=== PATIENT | female | born 1960 | race Caucasian/White ===

== ENCOUNTER 2017-11-25 12:17 | Inpatient (IN) ==
--- NOTE | 2017-11-25 13:52 | ED ---
HPI General Chief complaint: Altered Mental Status Stated complaint: Vomiting Time Seen by Provider: 11/25/17 13:39 Source: patient Mode of arrival: wheelchair Limitations: altered mental status History of Present Illness HPI narrative: 57-year-old female who presents from triage with report that she had vomiting and diarrhea which she now denies to me. She is very confused and per staff she said her was with her and pointed out a trash can. She cannot tell me how many times she vomited and does not think that she ever did. She denies complaints but every time I ask her a question she just stares at me and does not respond. Related Data Home Medications Medication Instructions Recorded Confirmed acetaminophen [Tylenol Extra 1,000 mg PO Q6H PRN 11/25/17 11/25/17 Strength] [id number]-[id number] 1 tab PO Q4-6H PRN 11/25/17 11/25/17 [Headache Relief (JOT-[id number])] buspirone 15 mg PO TID 11/25/17 11/25/17 clonazepam [Klonopin] 0.5 mg PO BID PRN 11/25/17 11/25/17 clonidine HCl [Catapres] 0.2 mg PO BID 11/25/17 11/25/17 diphenhydramine HCl [Allergy 25 mg PO Q4-6H PRN 11/25/17 11/25/17 Relief(diphenhydramin)] guaifenesin [Mucus Relief] 200 mg PO Q4H PRN 11/25/17 11/25/17 hydrocodone-acetaminophen [[place]] 1 tab PO Q4-6H PRN 11/25/17 11/25/17 ibuprofen 200 mg PO Q4-6H PRN 11/25/17 11/25/17 ibuprofen 200 mg PO Q4-6H PRN 11/25/17 11/25/17 rizatriptan 10 mg PO Q2-4H PRN 11/25/17 11/25/17 sumatriptan succinate [Imitrex] 100 mg PO Q2-4H PRN 11/25/17 11/25/17 Allergies Allergy/AdvReac Type Severity Reaction Status Date / Time No Known Allergies Allergy Unverified 11/25/17 13:46 Review of Systems ROS Unobtainable unobtainable due to mental status [facility] Medical History Medical History Medical history unknown (Acute) Social History Social History Substance History: No History of Abuse Second Hand Smoke Exposure: Yes Smoking Status: Current every day smoker Tobacco Type: Cigarettes How Often Do You Have a Drink Containing Alcohol: 4 or more times a week Recent Travel in [facility] within the Last 8 Weeks: No Recent Out of Country Travel within the Last 8 Weeks: No Exam Narrative Exam Narrative: GENERAL: 57-year-old female in no apparent distress SKIN: Focused skin assessment warm/dry. HEAD: Atraumatic. Normocephalic. EYES: Pupils equal and round. No scleral icterus. No injection or drainage. ENT: No nasal bleeding or discharge. Mucous membranes pink and moist. NECK: Trachea midline. CARDIOVASCULAR: Regular rate and rhythm. RESPIRATORY: No accessory muscle use. Clear to auscultation. Breath sounds equal bilaterally. GASTROINTESTINAL: Abdomen soft, non-tender, nondistended. MUSCULOSKELETAL: No obvious deformities. No clubbing. No cyanosis NEUROLOGICAL: Eyes open, moves all extremities, slow clear speech Course Consultations Consultation #1: dr fuentes requests monitoring in icu given level of sodium Initial Documented Vital Signs Temperature 97.9 F 11/25/17 12:32 Pulse Rate 81 11/25/17 12:32 Respiratory Rate 16 11/25/17 12:32 Blood Pressure 206/110 H 11/25/17 12:32 Pulse Oximetry 100 11/25/17 12:32 Last Documented Vital Signs Temperature 98.2 F 11/25/17 13:43 Pulse Rate 89 11/25/17 17:00 Respiratory Rate 18 11/25/17 16:25 Blood Pressure 192/94 H 11/25/17 17:00 Pulse Oximetry 98 11/25/17 17:00 Medical Decision Making MDM Narrative Medical decision making narrative: Will check blood work, imaging, urinalysis and reevaluate Workup reveals critical hyponatremia with concurrent mild hypokalemia and UTI with leukocytosis. Given antibiotics and placed on normal saline fluids. On recheck patient is more responsive and agrees to admission to the hospital. Differential Diagnosis Differential Diagnosis: Intracranial injury, UTI, electrolyte abnormality Lab Data Lab results reviewed: Yes I reviewed the patient's lab results. Result diagrams: 11/25/17 13:50 11/25/17 13:50 Lab Results 11/25/17 11/25/17 11/25/17 Range/Units 13:50 13:50 13:50 WBC 20.0 H (4.0-11.0) th/mm3 RBC 4.36 (4.00-5.30) mil/mm3 Hgb 15.2 (11.6-15.3) gm/dL Hct 42.6 (35.0-46.0) % MCV 97.7 (80.0-100.0) fL MCH 34.8 H (27.0-34.0) pg MCHC 35.6 (32.0-36.0) % RDW 12.8 (11.6-17.2) % Plt Count 348 (150-450) th/mm3 MPV 6.9 L (7.0-11.0) fL Neut % (Auto) 82.2 H (16.0-70.0) % Lymph % (Auto) 9.9 (9.0-44.0) % [place] % (Auto) 7.8 (0.0-8.0) % Eos % (Auto) 0.0 (0.0-4.0) % Baso % (Auto) 0.1 (0.0-2.0) % Neut # (Auto) 16.4 H (1.8-7.7) th/mm3 Lymph # (Auto) 2.0 (1.0-4.8) th/mm3 [place] # (Auto) 1.6 H (0.0-0.9) th/mm3 Eos # (Auto) 0.0 (0.0-0.4) th/mm3 Baso # (Auto) 0.0 (0.0-0.2) th/mm3 WBC Differential . Differential Comment Auto diff final PT 11.2 (9.8-11.6) sec INR 1.1 Ratio APTT 28.3 (24.3-30.1) sec Sodium 116 L* (136-145) meq/L Potassium 3.0 L (3.5-5.1) meq/L Chloride 76 L (98-107) meq/L Carbon Dioxide 24.6 (21.0-32.0) meq/L Anion Gap 15 (5-15) meq/L BUN 7 (7-18) mg/dL Creatinine 0.57 (0.50-1.00) mg/dL Estimated GFR Greater than 89 (>89) mL/min POC Glucose (68-110) mg/dl Random Glucose 107 H (74-106) mg/dL Calcium 8.6 (8.5-10.1) mg/dL Total Bilirubin 0.9 (0.2-1.0) mg/dL AST 37 (15-37) U/L ALT 21 (10-53) U/L Alkaline Phosphatase 81 (45-117) U/L Ammonia (11-32) mcmol/L Total Creatine Kinase 276 H (26-192) U/L CK-MB (CK-2) 6.5 H (0.5-3.6) ng/mL CK-MB (CK-2) % 2.4 (0.0-4.0) % Troponin I Less than 0.02 L (0.02-0.05) ng/mL Total Protein 7.3 (6.4-8.2) g/dL Albumin 4.0 (3.4-5.0) g/dL Urine Color (Yellw/Straw) Urine Clarity (Clear) Urine pH (5.0-8.5) Ur Specific [place] (1.002-1.035) Urine Protein (Neg-Trace) mg/dL Urine Glucose (UA) (Negative) mg/dL Urine Ketones (Negative) mg/dL Urine Occult Blood (Negative) Urine Nitrate (Negative) Urine Bilirubin (Negative) Urine Urobilinogen (Less than 2) mg/dL Ur Leukocyte Esterase (Negative) Urine WBC (0-5) /hpf Urine Bacteria (None) /hpf Micro UA Comment Urine Culture Comments Serum Alcohol Less than 3 (0-5) mg/dL 11/25/17 11/25/17 11/25/17 Range/Units 13:50 13:51 14:45 WBC (4.0-11.0) th/mm3 RBC (4.00-5.30) mil/mm3 Hgb (11.6-15.3) gm/dL Hct (35.0-46.0) % MCV (80.0-100.0) fL MCH (27.0-34.0) pg MCHC (32.0-36.0) % RDW (11.6-17.2) % Plt Count (150-450) th/mm3 MPV (7.0-11.0) fL Neut % (Auto) (16.0-70.0) % Lymph % (Auto) (9.0-44.0) % [place] % (Auto) (0.0-8.0) % Eos % (Auto) (0.0-4.0) % Baso % (Auto) (0.0-2.0) % Neut # (Auto) (1.8-7.7) th/mm3 Lymph # (Auto) (1.0-4.8) th/mm3 [place] # (Auto) (0.0-0.9) th/mm3 Eos # (Auto) (0.0-0.4) th/mm3 Baso # (Auto) (0.0-0.2) th/mm3 WBC Differential Differential Comment PT (9.8-11.6) sec INR Ratio APTT (24.3-30.1) sec Sodium (136-145) meq/L Potassium (3.5-5.1) meq/L Chloride (98-107) meq/L Carbon Dioxide (21.0-32.0) meq/L Anion Gap (5-15) meq/L BUN (7-18) mg/dL Creatinine (0.50-1.00) mg/dL Estimated GFR (>89) mL/min POC Glucose 120 H (68-110) mg/dl Random Glucose (74-106) mg/dL Calcium (8.5-10.1) mg/dL Total Bilirubin (0.2-1.0) mg/dL AST (15-37) U/L ALT (10-53) U/L Alkaline Phosphatase (45-117) U/L Ammonia 24 (11-32) mcmol/L Total Creatine Kinase (26-192) U/L CK-MB (CK-2) (0.5-3.6) ng/mL CK-MB (CK-2) % (0.0-4.0) % Troponin I (0.02-0.05) ng/mL Total Protein (6.4-8.2) g/dL Albumin (3.4-5.0) g/dL Urine Color Yellow (Yellw/Straw) Urine Clarity Clear (Clear) Urine pH 7.0 (5.0-8.5) Ur Specific [place] 1.011 (1.002-1.035) Urine Protein 100 H (Neg-Trace) mg/dL Urine Glucose (UA) 50 (Negative) mg/dL Urine Ketones 20 (Negative) mg/dL Urine Occult Blood Moderate H (Negative) Urine Nitrate Negative (Negative) Urine Bilirubin Negative (Negative) Urine Urobilinogen 2.0 H (Less than 2) mg/dL Ur Leukocyte Esterase Negative (Negative) Urine WBC 12 H (0-5) /hpf Urine Bacteria Occasional H (None) /hpf Micro UA Comment Cath-culture ind Urine Culture Comments Cath-cult indicated Serum Alcohol (0-5) mg/dL Imaging Data Attestation: I personally reviewed and interpreted this imaging study as follows : Radiologist's impression: ITS Impressions Chest X-Ray 11/25/17 13:46 CONCLUSION: No acute cardiopulmonary disease. Head CT 11/25/17 13:46 CONCLUSION: 1. Scattered areas of low-attenuation white matter could be nonspecific white matter changes. 2. No hemorrhage or midline shift. Discharge Plan Discharge Disposition Patient Disposition: 30 Still Patient Discharge Details Discharge Problem: Acute hyponatremia, Acute alteration in mental status, Acute UTI Physicians Team ED Provider: Sujatha Fraire Primary Care Provider: Primary Care Eliza William Attending Provider: Joann Fuentes Discharge Interventions Interventions: ED Discharge Assessment Last Done: 11/25/17 17:11 Vital Signs Last Done: 11/25/17 15:15 Status ED Status: Left Department Discharge Information Discharge Date/Time: 11/25/17 17:12
[2017-11-25 14:17] LABS: Baso % (Auto) 0.1 % (0.0-2.0); Hematocrit 42.6 % (35.0-46.0); Hemoglobin 15.2 gm/dL (11.6-15.3); Lymph % (Auto) 9.9 % (9.0-44.0); Mean Corpuscular HGB Conc 35.6 % (32.0-36.0); Mean Corpuscular Hemoglobin 34.8 pg (27.0-34.0); Mean Corpuscular Volume 97.7 fL (80.0-100.0); Mean Platelet Volume 6.9 fL (7.0-11.0); Mono # (Auto) 1.6 th/mm3 (0.0-0.9); Mono % (Auto) 7.8 % (0.0-8.0); Neut # (Auto) 16.4 th/mm3 (1.8-7.7); Neut % (Auto) 82.2 % (16.0-70.0); Platelet Count 348 th/mm3 (150-450); Red Blood Count 4.36 mil/mm3 (4.00-5.30); Red Cell Distribution Width 12.8 % (11.6-17.2)
--- NOTE | 2017-11-25 14:19 | XR ---
EXAM DATE: 11/25/2017 2:10 PM EDT AGE/SEX: 57 years / Female INDICATIONS: Nausea, vomiting, AMS. CLINICAL DATA: This is the patient's initial encounter. Patient reports that signs and symptoms have been present for 1 day and indicates a pain score of Nonresponsive. MEDICAL/SURGICAL HISTORY: Non-responsive. Non-responsive. COMPARISON: No prior exams available for comparison. FINDINGS: The cardiac silhouette is normal in transverse diameter. The lungs are free of acute parenchymal opac ity. No effusions are identified. There is prominence of the aortic knob is with calcification charac teristic of atherosclerotic vascular disease. CONCLUSION: No acute cardiopulmonary disease. Electronically signed by: Demetris Juan MD 11/25/2017 2:18 PM EDT
[2017-11-25 14:27] LABS: Activated Partial Thrombo Time 28.3 sec (24.3-30.1); INR 1.1 Ratio; Prothrombin Time 11.2 sec (9.8-11.6)
[2017-11-25 14:49] LABS: Alanine Aminotransferase 21 U/L (10-53); Alkaline Phosphatase 81 U/L (45-117); Anion Gap 15 meq/L (5-15); Aspartate Aminotransferase 37 U/L (15-37); Blood Urea Nitrogen 7 mg/dL (7-18); Calcium 8.6 mg/dL (8.5-10.1); Carbon Dioxide 24.6 meq/L (21.0-32.0); Chloride 76 meq/L (98-107); Creatine Kinase 276 U/L (26-192); Glomerular Filtration Rate Greater Than 89 mL/min (>89); Glucose,Random 107 mg/dL (74-106); Total Protein 7.3 g/dL (6.4-8.2)
[2017-11-25 14:51] LABS: Sodium 116 meq/L (136-145)
[2017-11-25] MEDS ORDERED: Sodium Chlor 0.9% Inj 500 ML IV.SIG ONE (14:54)
[2017-11-25 15:12] LABS: CKMB Percent 2.4 % (0.0-4.0); Creatine Kinase MB 6.5 ng/mL (0.5-3.6)
[2017-11-25 15:24] LABS: Bacteria,Urine Occasional /hpf; Bilirubin,Urine Negative (Negative); Clarity,Urine Clear (Clear); Color,Urine Yellow (Yellw/Straw); Glucose,Urine (UA) 50 mg/dL (Negative); Leukocyte Esterase,Urine Negative (Negative); Nitrite,Urine Negative (Negative); Specific Gravity,Urine 1.011 (1.002-1.035)
[2017-11-25] MEDS ORDERED: Bisacodyl 10 MG Supp RECTAL PRN (16:11)
[2017-11-25] MEDS ORDERED: Sod Chloride 0.9% Inj 1,000 ML IV.CONT SCH (16:15)
[2017-11-25 17:43] LABS: Anion Gap 16 meq/L (5-15); Blood Urea Nitrogen 6 mg/dL (7-18); Calcium 8.1 mg/dL (8.5-10.1); Carbon Dioxide 24.4 meq/L (21.0-32.0); Chloride 79 meq/L (98-107); Glomerular Filtration Rate Greater Than 89 mL/min (>89); Glucose,Random 101 mg/dL (74-106)
[2017-11-25 17:46] LABS: Amphetamine Screen,Urine Neg (Neg); Barbiturate Screen,Urine Neg (Neg); Cannabinoid Screen,Urine Neg (Neg); Cocaine Screen,Urine Neg (Neg); Opiate Screen,Urine Neg (Neg)
[2017-11-25 17:59] LABS: Potassium 2.4 meq/L (3.5-5.1); Sodium 119 meq/L (136-145)
[2017-11-25] MEDS ORDERED: Potassium Chlor 20 mEq Premix 20 MEQ/100 ML PIGGYBACK IV.SIG ONE (18:00)
[2017-11-25] MEDS ORDERED: Potassium Chloride Inj 20 MEQ in Sod Chloride 0.9% Inj 1,000 ML IV.CONT SCH (18:15)
--- NOTE | 2017-11-25 18:27 | P.HP ---
History of Present Illness Primary Care Physician: No Primary Care Physician History of Present Illness: Patient is a 57-year-old female with past medical history of hyponatremia on sodium tablets presented to the emergency room with encephalopathy. She is a poor historian she thinks it is 1985, she knows who the president is but she thinks she is in [place]. She admits to nausea and vomiting for the past 2 days. She denies any diarrhea. She denies eating anything new at home. She denies any sick contacts. She denies any burning in urination or increased urinary frequency. She states that her called EMS for her. She admits to fevers and chills however she never took an official temperature at home. Per nurse, patient is here on a road trip. To me patient denied any diarrhea. Initially she said yes when asked if she had any chest pain or shortness of breath but then she says no when I asked her again. She seemed annoyed with my question. She denied again any chest pain shortness of breath however after I asked her a third time. Per EMR documentation: "Pt reported that she had been vomiting and having diarrhea to triage but denied this to ED physician. She was very confused and per staff she said her was with her and pointed out a trash can. She cannot tell ED physician how many times she vomited and does not think that she ever did. She denied complaints but every time ED physician asked her a question she just stared at her and did not respond." Past medical history: Questionable history of hypothyroidism, anxiety, alcohol use daily states it is only 2 beers however patient is a poor historian therefore unable to assess. History of headaches. She is a smoker. Apparently she has chronic hyponatremia Past surgical history: None per patient Family history: She complains that her parents are healthy. When I asked if they are living she says I think so. Social history: Smokes a pack a day for many years. Admits to drinking daily to beers but does not elaborate much. Denies any prior history of seizures. Denies any illegal drug use. CODE STATUS: Patient states she does not want to be resuscitated however patient is confused therefore will make her full code for now. - Inpatient Certification If this patient has been admitted as an Inpatient: I certify that the inpatient services were ordered in accordance with Medicare regulations governing the order. This includes certification that hospital inpatient services are reasonable and necessary and in the case of services not specified as inpatient-only under 42 CFR 419.22(n), that they are appropriately provided as inpatient services in accordance to with the 2-midnight benchmark under 43 CFR 412.3(e) Estimated Total Length of Stay (Days): 3 Plans for Post Hospital Care: Not yet determined Review of Systems other (Patient is confused. Part of the history is obtained by patient and EMR) PMFSH - History History Provided By: Patient - Medical History Medical History: Medical History (Last Reviewed 11/25/17 @ 17:23 by Sujatha Fraire MD) Medical history unknown - Tobacco History Second Hand Smoke Exposure: Yes Tobacco Use In Past 30 Days: Yes Smoking Status: Current every day smoker Tobacco Type: Cigarettes - Alcohol History How Often Do You Have a Drink Containing Alcohol: 4 or more times a week - Substance Use History Substance History: No History of Abuse - Travel History Recent Travel in the [place] Within the Last 8 Weeks: No Recent Travel Out of the Country Within the Last 8 Weeks: No - Immunization History Tetanus Immunization: Unsure Hx Influenza Vaccine This Season: Yes Medications and Allergies Active Medications: Active Medications Al Hydroxide/Mg Hydroxide (Milk Of Magnesia Liq) 30 ml PO Q12H PRN PRN Reason: Mild Constipation Amlodipine Besylate (Norvasc) 10 mg PO DAILY ALEX Bisacodyl (Dulcolax Supp) 10 mg RECTAL DAILY PRN PRN Reason: SEVERE CONSITIPATION Potassium Chloride (Kcl 20 Meq Premix Inj) 20 meq in 100 mls @ 50 mls/hr IV.SIG ONCE ONE Stop: 11/25/17 19:59 Potassium Chloride 20 meq/ (Sodium Chloride) 1,010 mls @ 45 mls/hr IV.CONT .[id number] ALEX Lactulose (Lactulose Liq) 30 ml PO DAILY PRN PRN Reason: SEVERE CONSITIPATION Ondansetron HCl (Zofran Inj) 4 mg IV.PUSH Q6H PRN PRN Reason: NAUSEA OR VOMITING Last Admin: 11/25/17 17:33 Dose: 4 mg Senna/Docusate Sodium (Aye-Colace) 1 tab PO BID ALEX Sennosides (Senokot) 17.2 mg PO Q12H PRN PRN Reason: Moderate Constipation Sodium Chloride (Ns Flush) 2 ml IV.FLUSH PRN PRN PRN Reason: FLUSH AFTER USING IV ACCESS Sodium Chloride (Ns Flush) 2 ml IV.FLUSH PRN PRN PRN Reason: FLUSH AFTER USING IV ACCESS Temazepam (Restoril) 15 mg PO HS PRN PRN Reason: INSOMNIA Allergies Allergy/AdvReac Type Severity Reaction Status Date / Time No Known Allergies Allergy Unverified 11/25/17 13:46 Home Medications Medication Instructions Recorded Confirmed Type acetaminophen [Tylenol Extra 1,000 mg PO Q6H PRN 11/25/17 11/25/17 History Strength] zmqwbxg-nsbplrgvygupp-ekkdkzbf 1 tab PO Q4-6H PRN 11/25/17 11/25/17 History [Headache Relief (QBU-rqij-yqk)] buspirone 15 mg PO TID 11/25/17 11/25/17 History clonazepam [Klonopin] 0.5 mg PO BID PRN 11/25/17 11/25/17 History clonidine HCl [Catapres] 0.2 mg PO BID 11/25/17 11/25/17 History diphenhydramine HCl [Allergy 25 mg PO Q4-6H PRN 11/25/17 11/25/17 History Relief(diphenhydramin)] guaifenesin [Mucus Relief] 200 mg PO Q4H PRN 11/25/17 11/25/17 History hydrocodone-acetaminophen [[place]] 1 tab PO Q4-6H PRN 11/25/17 11/25/17 History ibuprofen 200 mg PO Q4-6H PRN 11/25/17 11/25/17 History ibuprofen 200 mg PO Q4-6H PRN 11/25/17 11/25/17 History rizatriptan 10 mg PO Q2-4H PRN 11/25/17 11/25/17 History sumatriptan succinate [Imitrex] 100 mg PO Q2-4H PRN 11/25/17 11/25/17 History Exam Vital signs: Vital Signs 11/25/17 12:32 11/25/17 13:43 11/25/17 14:17 Temperature 97.9 F 98.2 F Pulse Rate 81 80 Respiratory Rate 16 18 Blood Pressure 206/110 H 200/107 H Pulse Oximetry 100 98 98 11/25/17 15:15 11/25/17 16:25 11/25/17 17:00 Temperature Pulse Rate 90 79 89 Respiratory Rate 14 18 Blood Pressure 201/107 H 184/95 H 192/94 H Pulse Oximetry 99 99 98 Intake & Output 11/24/17 11/25/17 11/25/17 18:59 06:59 18:59 Weight 53.8 kg Other: Post Void Residual 200 Weight On Admission 53.8 kg Narrative: GENERAL: Thin female, trying to get out of [facility] bed and urinated on the floor. calm SKIN: Warm and dry. HEAD: Atraumatic. Normocephalic. EYES: EOMI ENT: No nasal discharge. Mucous membranes pink and moist. NECK: Trachea midline. No JVD. CARDIOVASCULAR: Regular rate and rhythm. RESPIRATORY: No accessory muscle use. Clear to auscultation. Breath sounds equal bilaterally. GASTROINTESTINAL: Abdomen soft, non-tender, nondistended. MUSCULOSKELETAL: Extremities without edema. No obvious deformities. NEUROLOGICAL: Awake and alert. No obvious cranial nerve deficits. Motor grossly within normal limits. Five out of 5 muscle strength in the arms and legs. Normal speech. PSYCHIATRIC: flat affect, calm, follows commands but getting out of bed even when nursing staff tells her to remain in bed. Results - Labs CBC & Chem 7: 11/25/17 13:50 11/25/17 16:45 Labs: Laboratory Results - last 24 hr 11/25/17 11/25/17 11/25/17 13:50 13:50 13:50 WBC 20.0 H RBC 4.36 Hgb 15.2 Hct 42.6 MCV 97.7 MCH 34.8 H MCHC 35.6 RDW 12.8 Plt Count 348 MPV 6.9 L Neut % (Auto) 82.2 H Lymph % (Auto) 9.9 [place] % (Auto) 7.8 Eos % (Auto) 0.0 Baso % (Auto) 0.1 Neut # (Auto) 16.4 H Lymph # (Auto) 2.0 [place] # (Auto) 1.6 H Eos # (Auto) 0.0 Baso # (Auto) 0.0 WBC Differential . Differential Comment Auto diff final PT 11.2 INR 1.1 APTT 28.3 Sodium 116 L* Potassium 3.0 L Chloride 76 L Carbon Dioxide 24.6 Anion Gap 15 BUN 7 Creatinine 0.57 Estimated GFR Greater than 89 POC Glucose Random Glucose 107 H Calcium 8.6 Total Bilirubin 0.9 AST 37 ALT 21 Alkaline Phosphatase 81 Ammonia Total Creatine Kinase 276 H CK-MB (CK-2) 6.5 H CK-MB (CK-2) % 2.4 Troponin I Less than 0.02 L Total Protein 7.3 Albumin 4.0 Urine Color Urine Clarity Urine pH Ur Specific [place] Urine Protein Urine Glucose (UA) Urine Ketones Urine Occult Blood Urine Nitrate Urine Bilirubin Urine Urobilinogen Ur Leukocyte Esterase Urine WBC Urine Bacteria Micro UA Comment Urine Culture Comments Urine Opiates Screen Ur Barbiturates Screen Ur Amphetamines Screen U Benzodiazepines Scrn Urine Cocaine Screen U Cannabinoids Screen Serum Alcohol Less than 3 11/25/17 11/25/17 11/25/17 13:50 13:51 14:45 WBC RBC Hgb Hct MCV MCH MCHC RDW Plt Count MPV Neut % (Auto) Lymph % (Auto) [place] % (Auto) Eos % (Auto) Baso % (Auto) Neut # (Auto) Lymph # (Auto) [place] # (Auto) Eos # (Auto) Baso # (Auto) WBC Differential Differential Comment PT INR APTT Sodium Potassium Chloride Carbon Dioxide Anion Gap BUN Creatinine Estimated GFR POC Glucose 120 H Random Glucose Calcium Total Bilirubin AST ALT Alkaline Phosphatase Ammonia 24 Total Creatine Kinase CK-MB (CK-2) CK-MB (CK-2) % Troponin I Total Protein Albumin Urine Color Urine Clarity Urine pH Ur Specific [place] Urine Protein Urine Glucose (UA) Urine Ketones Urine Occult Blood Urine Nitrate Urine Bilirubin Urine Urobilinogen Ur Leukocyte Esterase Urine WBC Urine Bacteria Micro UA Comment Urine Culture Comments Urine Opiates Screen Neg Ur Barbiturates Screen Neg Ur Amphetamines Screen Neg U Benzodiazepines Scrn Neg Urine Cocaine Screen Neg U Cannabinoids Screen Neg Serum Alcohol 11/25/17 11/25/17 14:45 16:45 WBC RBC Hgb Hct MCV MCH MCHC RDW Plt Count MPV Neut % (Auto) Lymph % (Auto) [place] % (Auto) Eos % (Auto) Baso % (Auto) Neut # (Auto) Lymph # (Auto) [place] # (Auto) Eos # (Auto) Baso # (Auto) WBC Differential Differential Comment PT INR APTT Sodium 119 L* Potassium 2.4 L* Chloride 79 L Carbon Dioxide 24.4 Anion Gap 16 H BUN 6 L Creatinine 0.48 L Estimated GFR Greater than 89 POC Glucose Random Glucose 101 Calcium 8.1 L Total Bilirubin AST ALT Alkaline Phosphatase Ammonia Total Creatine Kinase CK-MB (CK-2) CK-MB (CK-2) % Troponin I Total Protein Albumin Urine Color Yellow Urine Clarity Clear Urine pH 7.0 Ur Specific [place] 1.011 Urine Protein 100 H Urine Glucose (UA) 50 Urine Ketones 20 Urine Occult Blood Moderate H Urine Nitrate Negative Urine Bilirubin Negative Urine Urobilinogen 2.0 H Ur Leukocyte Esterase Negative Urine WBC 12 H Urine Bacteria Occasional H Micro UA Comment Cath-culture ind Urine Culture Comments Cath-cult indicated Urine Opiates Screen Ur Barbiturates Screen Ur Amphetamines Screen U Benzodiazepines Scrn Urine Cocaine Screen U Cannabinoids Screen Serum Alcohol - Imaging Impressions Chest X-Ray 11/25/17 13:46 CONCLUSION: No acute cardiopulmonary disease. Head CT 11/25/17 13:46 CONCLUSION: 1. Scattered areas of low-attenuation white matter could be nonspecific white matter changes. 2. No hemorrhage or midline shift. Caprini VTE Risk Assessment Caprini VTE Risk Assessment: No/Low Risk (score <= 1) Caprini Risk Assessment Model: Point Value = 1 Point Value = 2 Point Value = 3 Point Value = 5 Age 41-60 Minor surgery BMI > 25 kg/m2 Swollen legs Varicose veins or History of unexplained or recurrent spontaneous Oral contraceptives or hormone replacement Sepsis (< 1 month) Serious lung disease, including pneumonia (< 1 month) Abnormal pulmonary function Acute myocardial infarction Congestive heart failure (< 1 month) History of inflammatory bowel disease Medical patient at bed rest Age 61-74 Arthroscopic surgery Major open surgery (> 45 min) Laparoscopic surgery (> 45 min) Malignancy Confined to bed (> 72 hours) Immobilizing plaster cast Central venous access Age >= 75 History of VTE Family history of VTE Factor V Leiden Prothrombin 50045L Lupus anticoagulant Anticardiolipin antibodies Elevated serum homocysteine Heparin-induced thrombocytopenia Other congenital or acquired thrombophilia Stroke (< 1 month) Elective arthroplasty Hip, pelvis, or leg fracture Acute spinal cord injury (< 1 month) Prophylaxis Regimen: Total Risk Factor Score Risk Level Prophylaxis Regimen 0-1 Low Early ambulation 2 Moderate Order ONE of the following: *Sequential Compression Device (SCD) *Heparin 5000 units SQ BID 3-4 Higher Order ONE of the following medications: *Heparin 5000 units SQ TID *Enoxaparin/Lovenox 40 mg SQ daily (WT < 150 kg, CrCl > 30 mL/min) *Enoxaparin/Lovenox 30 mg SQ daily (WT < 150 kg, CrCl > 10-29 mL/min) *Enoxaparin/Lovenox 30 mg SQ BID (WT < 150 kg, CrCl > 30 mL/min) AND/OR *Sequential Compression Device (SCD) 5 or more Highest Order ONE of the following medications: *Heparin 5000 units SQ TID (Preferred with Epidurals) *Enoxaparin/Lovenox 40 mg SQ daily (WT < 150 kg, CrCl > 30 mL/min) *Enoxaparin/Lovenox 30 mg SQ daily (WT < 150 kg, CrCl > 10-29 mL/min) *Enoxaparin/Lovenox 30 mg SQ BID (WT < 150 kg, CrCl > 30 mL/min) AND *Sequential Compression Device (SCD) Assessment and Plan - Plan Patient presented with Severe hyponatremia with a sodium level 116. Apparently patient states that she has a history of chronic hyponatremia and take to sodium tablets daily. She was admitted to the ICU for close monitoring, She tells me she has a doll wigs hackler but does not give me the name. She does give me the name of her primary care doctor but thinks this PCP is here. Nursing staff tells me that they are here on a road trip. Will fluid restrict patient. Put her on seizure precautions. Patient admits to drinking 2 beers a day however patient is a poor historian therefore might be drinking more than this. CIWA protocol was started. Fall precautions in place. Monitor BMP every 4 hours. Slowly replace with normal saline at 45 mL's per hour with 20 mEq KCl. I have started pt on sodium tabs. check serum/urine osm Severe hypokalemia. Potassium down to 2.4. We will give 40 mEq p.o. 1 and 40 mg IV as well. Added potassium to her IV fluids. Monitor very closely. History of anxiety. Resume home medication. History of alcohol use: Unsure if she has a history of alcohol abuse. [place] protocol in place. Fall and seizure precautions in place. Monitor closely. Patient is getting out of bed even after we redirect her and asked her to stay in bed. Will place her on soft restraints for now hopefully DC in the morning. ?hypothyroidism: reviewed bag of meds but there was no thyroid meds. will check TSH/T4
[2017-11-25] MEDS: Potassium Chlor 20 mEq Premix 20 MEQ/100 ML PIGGYBACK IV.SIG SCH ×2 (18:37→20:38)
[2017-11-25] MEDS: amLODIPine 10 MG Tablet PO SCH (18:40)
[2017-11-25] MEDS ORDERED: LORazepam 1 MG Tablet PO PRN (18:50)
[2017-11-25] MEDS ORDERED: Haloperidol Inj 5 MG/ML Ampul IV.PUSH PRN (18:50)
[2017-11-25 21:30] LABS: Anion Gap 13 meq/L (5-15); Blood Urea Nitrogen 5 mg/dL (7-18); Calcium 8.8 mg/dL (8.5-10.1); Carbon Dioxide 24.3 meq/L (21.0-32.0); Chloride 83 meq/L (98-107); Free T4 (Free Thyroxine) 0.95 ng/dL (0.76-1.46); Glomerular Filtration Rate Greater Than 89 mL/min (>89); Glucose,Random 137 mg/dL (74-106)
[2017-11-25 21:44] LABS: Potassium 2.4 meq/L (3.5-5.1); Sodium 120 meq/L (136-145)
[2017-11-25] MEDS: Senna/Docusate Sodium 8.6/50 MG Tablet PO SCH (22:32)
[2017-11-25] MEDS: Sodium Chloride 1 GM Tablet PO SCH (22:33)
[2017-11-26 01:09] LABS: Anion Gap 14 meq/L (5-15); Blood Urea Nitrogen 5 mg/dL (7-18); Calcium 9.4 mg/dL (8.5-10.1); Carbon Dioxide 23.7 meq/L (21.0-32.0); Chloride 90 meq/L (98-107); Glomerular Filtration Rate Greater Than 89 mL/min (>89); Glucose,Random 92 mg/dL (74-106); Sodium 128 meq/L (136-145)
[2017-11-26 05:41] LABS: Anion Gap 14 meq/L (5-15); Blood Urea Nitrogen 5 mg/dL (7-18); Calcium 8.9 mg/dL (8.5-10.1); Carbon Dioxide 22.5 meq/L (21.0-32.0); Chloride 93 meq/L (98-107); Glomerular Filtration Rate Greater Than 89 mL/min (>89); Glucose,Random 94 mg/dL (74-106); Sodium 129 meq/L (136-145)
[2017-11-26 05:52] LABS: Potassium 2.8 meq/L (3.5-5.1)
[2017-11-26] MEDS ORDERED: Potassium Chlor 20 mEq Premix 20 MEQ/100 ML PIGGYBACK IV.SIG ONE (06:30)
[2017-11-26] MEDS ORDERED: cefTRIAXone Inj 1,000 MG Vial IM SCH (09:00)
[2017-11-26 09:46] LABS: Anion Gap 12 meq/L (5-15); Blood Urea Nitrogen 4 mg/dL (7-18); Calcium 8.7 mg/dL (8.5-10.1); Carbon Dioxide 21.7 meq/L (21.0-32.0); Chloride 95 meq/L (98-107); Glomerular Filtration Rate Greater Than 89 mL/min (>89); Glucose,Random 96 mg/dL (74-106); Sodium 129 meq/L (136-145)
[2017-11-26] MEDS: amLODIPine 10 MG Tablet PO SCH (10:03)
[2017-11-26] MEDS: Senna/Docusate Sodium 8.6/50 MG Tablet PO SCH ×2 (10:08→19:59)
[2017-11-26] MEDS ORDERED: hydrALAZINE HCl Inj 20 MG/ML Vial IV.PUSH PRN (11:22)
[2017-11-26 15:11] LABS: Baso % (Auto) 0.1 % (0.0-2.0); Eos % (Auto) 0.1 % (0.0-4.0); Hematocrit 43.6 % (35.0-46.0); Hemoglobin 14.8 gm/dL (11.6-15.3); Lymph # (Auto) 1.6 th/mm3 (1.0-4.8); Lymph % (Auto) 11.2 % (9.0-44.0); Mean Corpuscular Hemoglobin 35.5 pg (27.0-34.0); Mean Corpuscular Volume 104.4 fL (80.0-100.0); Mean Platelet Volume 7.8 fL (7.0-11.0); Mono # (Auto) 1.3 th/mm3 (0.0-0.9); Mono % (Auto) 8.7 % (0.0-8.0); Neut # (Auto) 11.6 th/mm3 (1.8-7.7); Neut % (Auto) 79.9 % (16.0-70.0); Platelet Count 255 th/mm3 (150-450); Red Blood Count 4.18 mil/mm3 (4.00-5.30); Red Cell Distribution Width 13.1 % (11.6-17.2); White Blood Count 14.5 th/mm3 (4.0-11.0)
[2017-11-26 15:27] LABS: Anion Gap 12 meq/L (5-15); Blood Urea Nitrogen 5 mg/dL (7-18); Calcium 8.2 mg/dL (8.5-10.1); Carbon Dioxide 22.1 meq/L (21.0-32.0); Chloride 96 meq/L (98-107); Glomerular Filtration Rate Greater Than 89 mL/min (>89); Glucose,Random 171 mg/dL (74-106); Sodium 130 meq/L (136-145)
[2017-11-26 15:30] LABS: Potassium 2.9 meq/L (3.5-5.1)
--- NOTE | 2017-11-26 15:55 | P.PNIM ---
Subjective Interval history: Patient is awake and alert. Denies chest pain or shortness of breath. Denies fevers or chills. Physical Exam Vital signs: Vital Signs 11/25/17 16:25 11/25/17 17:00 11/25/17 20:00 Temperature 98.9 F Pulse Rate 79 89 75 Respiratory Rate 18 18 Blood Pressure 184/95 H 192/94 H 147/81 H Pulse Oximetry 99 98 95 11/26/17 00:00 11/26/17 02:00 11/26/17 04:00 Temperature 98.4 F Pulse Rate 80 69 85 Respiratory Rate 20 15 Blood Pressure 144/84 H 167/99 H Pulse Oximetry 95 11/26/17 06:00 Temperature Pulse Rate 85 Respiratory Rate Blood Pressure Pulse Oximetry Intake & Output 11/25/17 11/26/17 11/26/17 18:59 06:59 18:59 Intake Total 40 / 40 220 / 220 Output Total 5000 / 5000 Balance 40 / 40 -4780 / -4780 Weight 53.8 kg Intake: IV 100 / 100 KCl 20 mEq Premix Inj 20 meq In 100 / 100 100 ml @ 50 mls/hr IV.SIG Q2H ALEX Rx#:[id number] Oral 40 / 40 120 / 120 Output: Urine 5000 / 5000 Other: Post Void Residual 200 # Bowel Movements 0 Weight On Admission 53.8 kg - Constitutional no acute distress - Routine HEENT Exam Head: Present: normocephalic, atraumatic Eye: Present: EOMI, PERRL - Routine Neck Exam Present: supple - Routine Respiratory Exam Present: CTA bilaterally - Routine Cardiovascular Exam Present: RRR, S1, S2 - Routine Abdominal Exam Present: soft, normoactive bowel sounds - Routine Extremities Exam Present: pulses intact - Routine Neurological Exam Present: alert, CN II-XII intact AAOx2 - Routine Psychiatric Exam Present: depressed Comments: Flat affect Results - Labs CBC & Chem 7: 11/26/17 14:07 11/26/17 14:07 Laboratory Results - last 24 hr 11/25/17 11/25/17 11/25/17 14:45 14:45 16:45 WBC RBC Hgb Hct MCV MCH MCHC RDW Plt Count MPV Neut % (Auto) Lymph % (Auto) [place] % (Auto) Eos % (Auto) Baso % (Auto) Neut # (Auto) Lymph # (Auto) [place] # (Auto) Eos # (Auto) Baso # (Auto) WBC Differential Differential Comment Sodium 119 L* Potassium 2.4 L* Chloride 79 L Carbon Dioxide 24.4 Anion Gap 16 H BUN 6 L Creatinine 0.48 L Estimated GFR Greater than 89 Random Glucose 101 Osmolality Calcium 8.1 L Magnesium TSH Free T4 Urine Osmolality 345 Nasal Screen MRSA (PCR) Urine Opiates Screen Neg Ur Barbiturates Screen Neg Ur Amphetamines Screen Neg U Benzodiazepines Scrn Neg Urine Cocaine Screen Neg U Cannabinoids Screen Neg 11/25/17 11/25/17 11/25/17 18:05 19:43 19:43 WBC RBC Hgb Hct MCV MCH MCHC RDW Plt Count MPV Neut % (Auto) Lymph % (Auto) [place] % (Auto) Eos % (Auto) Baso % (Auto) Neut # (Auto) Lymph # (Auto) [place] # (Auto) Eos # (Auto) Baso # (Auto) WBC Differential Differential Comment Sodium Cancelled Potassium Cancelled Chloride Cancelled Carbon Dioxide Cancelled Anion Gap Cancelled BUN Cancelled Creatinine Cancelled Estimated GFR Cancelled Random Glucose Cancelled Osmolality 249 L Calcium Cancelled Magnesium TSH Free T4 Urine Osmolality Nasal Screen MRSA (PCR) Mrsa detected Urine Opiates Screen Ur Barbiturates Screen Ur Amphetamines Screen U Benzodiazepines Scrn Urine Cocaine Screen U Cannabinoids Screen 11/25/17 11/26/17 11/26/17 19:43 00:32 04:06 WBC RBC Hgb Hct MCV MCH MCHC RDW Plt Count MPV Neut % (Auto) Lymph % (Auto) [place] % (Auto) Eos % (Auto) Baso % (Auto) Neut # (Auto) Lymph # (Auto) [place] # (Auto) Eos # (Auto) Baso # (Auto) WBC Differential Differential Comment Sodium 120 L* 128 L 129 L Potassium 2.4 L* 3.0 L 2.8 L* Chloride 83 L 90 L 93 L Carbon Dioxide 24.3 23.7 22.5 Anion Gap 13 14 14 BUN 5 L 5 L 5 L Creatinine 0.52 0.51 0.65 Estimated GFR Greater than 89 Greater than 89 Greater than 89 Random Glucose 137 H 92 94 Osmolality Calcium 8.8 9.4 8.9 Magnesium TSH 2.110 Free T4 0.95 Urine Osmolality Nasal Screen MRSA (PCR) Urine Opiates Screen Ur Barbiturates Screen Ur Amphetamines Screen U Benzodiazepines Scrn Urine Cocaine Screen U Cannabinoids Screen 11/26/17 11/26/17 11/26/17 04:06 09:04 14:07 WBC RBC Hgb Hct MCV MCH MCHC RDW Plt Count MPV Neut % (Auto) Lymph % (Auto) [place] % (Auto) Eos % (Auto) Baso % (Auto) Neut # (Auto) Lymph # (Auto) [place] # (Auto) Eos # (Auto) Baso # (Auto) WBC Differential Differential Comment Sodium 129 L 130 L Potassium 3.0 L 2.9 L* Chloride 95 L 96 L Carbon Dioxide 21.7 22.1 Anion Gap 12 12 BUN 4 L 5 L Creatinine 0.54 0.59 Estimated GFR Greater than 89 Greater than 89 Random Glucose 96 171 H Osmolality Calcium 8.7 8.2 L Magnesium 2.4 TSH Free T4 Urine Osmolality Nasal Screen MRSA (PCR) Urine Opiates Screen Ur Barbiturates Screen Ur Amphetamines Screen U Benzodiazepines Scrn Urine Cocaine Screen U Cannabinoids Screen 11/26/17 14:07 WBC 14.5 H RBC 4.18 Hgb 14.8 Hct 43.6 MCV 104.4 H D MCH 35.5 H MCHC 34.0 RDW 13.1 Plt Count 255 MPV 7.8 Neut % (Auto) 79.9 H Lymph % (Auto) 11.2 [place] % (Auto) 8.7 H Eos % (Auto) 0.1 Baso % (Auto) 0.1 Neut # (Auto) 11.6 H Lymph # (Auto) 1.6 [place] # (Auto) 1.3 H Eos # (Auto) 0.0 Baso # (Auto) 0.0 WBC Differential . Differential Comment Auto diff final Sodium Potassium Chloride Carbon Dioxide Anion Gap BUN Creatinine Estimated GFR Random Glucose Osmolality Calcium Magnesium TSH Free T4 Urine Osmolality Nasal Screen MRSA (PCR) Urine Opiates Screen Ur Barbiturates Screen Ur Amphetamines Screen U Benzodiazepines Scrn Urine Cocaine Screen U Cannabinoids Screen Microbiology 11/25/17 14:45 Catheterized Urine Urine Culture - Preliminary No growth in 24 hours - Imaging ITS Impressions Chest X-Ray 11/25/17 13:46 CONCLUSION: No acute cardiopulmonary disease. Head CT 11/25/17 13:46 CONCLUSION: 1. Scattered areas of low-attenuation white matter could be nonspecific white matter changes. 2. No hemorrhage or midline shift. Assessment and Plan - Plan 1. Encephalopathy Head CT reviewed by me showed scattered areas of low-attenuation white matter which are nonspecific. No hemorrhage or midline shift. Chest x-ray reviewed by me did not show any acute infiltrates. Likely metabolic encephalopathy secondary to severe hyponatremia and a urinary tract infection. Encephalopathy is improving with improvement of hyponatremia. 2. Severe hyponatremia. Patient has history of chronic hyponatremia on sodium chloride tablets. Sodium on admission 116. Continue with fluid restriction. Consult nephrology for further recommendations. 3. Uncontrolled hypertension. The patient is currently on amlodipine 10 mg p.o. daily. Systolic blood pressure severely elevated with a systolic blood pressure in the 190s. Continue clonidine as needed, I will add IV hydralazine if clonidine is effective. Continue to monitor vital signs. 4. Alcohol abuse. Continue site [facility] protocol. There is no evidence of alcohol withdrawal. Code Status: Full code Discharge Planning: Continue to monitor in intensive care unit. The patient still severely apprehensive.
--- NOTE | 2017-11-26 18:06 | MB ---
cc: Rebecca Alicea MD, Abdul Q MD DATE: 11/26/2017 REASON FOR CONSULTATION: Hyponatremia for evaluation. HISTORY OF PRESENT ILLNESS: This is a 57 year-old female with past medical history of hypothyroidism, anxiety, possibility of alcoholism who came to the hospital with complaint of altered mental status. I was called to see the patient for low sodium level. Her sodium level on presentation was 116, which improved. Now it is going up to 130. The patient denies any previous history of low sodium. She claims that before coming here, she was not eating well and she has this nausea and vomiting. There is no history of diarrhea, no abdominal pain. Denies any shortness of breath or chest pain. She denies taking any new medications, but she admits that she was not eating well before she came to the hospital. PAST MEDICAL HISTORY: Hypothyroidism, anxiety, history of alcoholism. PAST SURGICAL HISTORY: None. REVIEW OF SYSTEMS: The patient is still feeling weak and tired, but according to her her appetite is improving and she does not have any vomiting today. There is mild nausea. No abdominal pain. No history of diarrhea. No shortness of breath. No chest pain. SOCIAL HISTORY: The patient has history of alcoholism and she is also chronic active smoker. FAMILY HISTORY: Noncontributory. ALLERGIES: SHE HAS NO KNOWN DRUG ALLERGIES. CURRENT MEDICATIONS: 1. Amlodipine 10 mg once a day. 2. Ceftriaxone 1 g every 24-hour 3. Clonidine 0.2 mg every 6 hours p.r.n. 4. Flumazenil 0.2 mg IV p.r.n. for sedation 5. Haldol p.r.n. 6. Lactulose p.r.n. 7. Ativan p.r.n. 8. IV fluids. She is getting normal saline with potassium chloride of 20 mEq at 45 an hour, 9. Aye-Colace 1 tablet b.i.d. 10. Restoril for insomnia p.r.n. PHYSICAL EXAMINATION: GENERAL: Awake, alert. She is not in acute distress. VITAL SIGNS: Last blood pressure is 167/99. Her blood pressure is a little bit on the higher side and she came with a blood pressure of 206/110, temperature is 98.4, oxygen saturation is 95% on room air. HEENT: Pupils are mid constricted. Nonicteric sclerae, conjunctivae pale. NECK: Supple. JVD is not elevated. LUNGS: The patient has bilateral good air entry. No wheezing. HEART: S1, S2. Regular rhythm. ABDOMEN: Soft, flat. There is no tenderness. Bowel sounds positive. EXTREMITIES: There is no pedal edema. LABORATORY DATA: WBC count is 14.5, hemoglobin 14.8 with platelet count of 255, neutrophils 79.9%. INR is 1.1. Sodium 130, potassium 2.9, chloride 96, bicarbonate 22.1, BUN 5, creatinine 0.5, glucose 171, calcium is 8.2. Urinalysis showing specific gravity 1.011, protein is 100 and urine osmolality was 345. Her toxicology screen was negative and alcohol level was less than 3. IMAGING STUDIES: The patient had CT scan of the brain done which shows that she has scattered area of low attenuation in the white matter could be nonspecific white matter disease, no hemorrhage or midline shift. Chest x-ray was done which shows that she has lung field clear. ASSESSMENT AND PLAN: 1. Hyponatremia. 2. Hypokalemia. 3. History of alcoholism. 4. Dehydration. 5. Nausea and vomiting, possibly gastroenteritis. 6. Questionable hypothyroidism. The patient has TSH normal at 2.1. Clinically, she is euvolemic. Most likely her hyponatremia is due to decreased oral intake and hypokalemia is also contributed by that. I will check her urine potassium. She is still running low potassium. Her magnesium was normal at 2.4. I will also check the phosphorus in the a.m. labs. Continue the IV fluid with potassium supplement. Her sodium is improving and now it is 130. The patient started eating. This will help the sodium to improve further. Thank you for the consultation and I will follow the patient while she is in the hospital. MD JON Cardona/ , 05:42 PM , 06:05 PM
[2017-11-26] MEDS: Sodium Chloride 1 GM Tablet PO SCH (20:17)
[2017-11-26 21:56] LABS: Anion Gap 12 meq/L (5-15); Blood Urea Nitrogen 5 mg/dL (7-18); Calcium 8.4 mg/dL (8.5-10.1); Carbon Dioxide 21.2 meq/L (21.0-32.0); Chloride 94 meq/L (98-107); Glomerular Filtration Rate Greater Than 89 mL/min (>89); Glucose,Random 93 mg/dL (74-106); Potassium 3.2 meq/L (3.5-5.1); Sodium 127 meq/L (136-145)
[2017-11-27 00:25] LABS: Anion Gap 11 meq/L (5-15); Blood Urea Nitrogen 4 mg/dL (7-18); Calcium 8.4 mg/dL (8.5-10.1); Chloride 95 meq/L (98-107); Glomerular Filtration Rate Greater Than 89 mL/min (>89); Glucose,Random 102 mg/dL (74-106); Potassium 3.1 meq/L (3.5-5.1); Sodium 130 meq/L (136-145)
[2017-11-27] MEDS: Sodium Chloride 1 GM Tablet PO SCH ×3 (03:19→21:23)
[2017-11-27 05:17] LABS: Baso # (Auto) 0.1 th/mm3 (0.0-0.2); Baso % (Auto) 0.5 % (0.0-2.0); Eos # (Auto) 0.1 th/mm3 (0.0-0.4); Eos % (Auto) 0.7 % (0.0-4.0); Hematocrit 45.4 % (35.0-46.0); Hemoglobin 15.6 gm/dL (11.6-15.3); Lymph # (Auto) 2.3 th/mm3 (1.0-4.8); Lymph % (Auto) 15.8 % (9.0-44.0); Mean Corpuscular HGB Conc 34.4 % (32.0-36.0); Mean Corpuscular Hemoglobin 35.3 pg (27.0-34.0); Mean Corpuscular Volume 102.6 fL (80.0-100.0); Mean Platelet Volume 7.2 fL (7.0-11.0); Mono # (Auto) 0.9 th/mm3 (0.0-0.9); Mono % (Auto) 6.3 % (0.0-8.0); Neut # (Auto) 11.1 th/mm3 (1.8-7.7); Neut % (Auto) 76.7 % (16.0-70.0); Platelet Count 320 th/mm3 (150-450); Red Blood Count 4.42 mil/mm3 (4.00-5.30); Red Cell Distribution Width 12.6 % (11.6-17.2); White Blood Count 14.4 th/mm3 (4.0-11.0)
[2017-11-27 05:39] LABS: Alanine Aminotransferase 17 U/L (10-53); Albumin 3.4 g/dL (3.4-5.0); Alkaline Phosphatase 74 U/L (45-117); Anion Gap 13 meq/L (5-15); Aspartate Aminotransferase 19 U/L (15-37); Blood Urea Nitrogen 4 mg/dL (7-18); Carbon Dioxide 22.4 meq/L (21.0-32.0); Chloride 93 meq/L (98-107); Glomerular Filtration Rate Greater Than 89 mL/min (>89); Glucose,Random 128 mg/dL (74-106); Phosphorus 1.7 mg/dL (2.5-4.9); Sodium 128 meq/L (136-145); Total Protein 6.9 g/dL (6.4-8.2)
[2017-11-27 05:43] LABS: Potassium 2.8 meq/L (3.5-5.1)
[2017-11-27] MEDS ORDERED: Potassium Phosphate Inj 15 MMOL in Sodium Chlor 0.9% Inj 150 ML IV.SIG ONE (06:38)
[2017-11-27] MEDS: amLODIPine 10 MG Tablet PO SCH (08:15)
[2017-11-27] MEDS: Senna/Docusate Sodium 8.6/50 MG Tablet PO SCH ×2 (08:15→21:26)
[2017-11-27] MEDS: Potassium Chlor 20 mEq Premix 20 MEQ/100 ML PIGGYBACK IV.SIG SCH ×2 (10:26→11:37)
--- NOTE | 2017-11-27 13:35 | P.PN ---
Subjective Interval history: 57 year-old female with past medical history of hypothyroidism, anxiety, possibility of alcoholism who came to the hospital with complaint of altered mental status. I was called to see the patient for low sodium level. Her sodium level on presentation was 116. Patient is alert, now eating, not in distress, mild epi. pain. Physical Exam Vital signs: Vital Signs 11/26/17 14:00 11/26/17 16:00 11/26/17 18:00 Temperature 98.1 F Pulse Rate 83 90 85 Respiratory Rate Blood Pressure 151/80 H Pulse Oximetry 77 L 11/26/17 20:00 11/26/17 22:00 11/26/17 22:48 Temperature 98.4 F Pulse Rate 76 72 78 Respiratory Rate 20 18 Blood Pressure 194/104 H Pulse Oximetry 99 99 11/26/17 23:00 11/27/17 00:00 11/27/17 00:01 Temperature 98.3 F Pulse Rate 71 84 Respiratory Rate 21 14 Blood Pressure 166/103 H 198/106 H Pulse Oximetry 96 95 11/27/17 00:15 11/27/17 01:00 11/27/17 01:21 Temperature Pulse Rate 76 72 Respiratory Rate 22 18 Blood Pressure 164/96 H 153/98 H Pulse Oximetry 96 98 98 11/27/17 02:00 11/27/17 03:00 11/27/17 04:00 Temperature Pulse Rate 70 73 89 Respiratory Rate 16 18 22 Blood Pressure 143/101 H 152/100 H Pulse Oximetry 97 98 98 11/27/17 04:08 11/27/17 04:32 11/27/17 04:55 Temperature 98.9 F Pulse Rate 88 94 H 70 Respiratory Rate 22 22 20 Blood Pressure 167/110 H 160/111 H 127/85 Pulse Oximetry 99 97 99 11/27/17 06:00 11/27/17 08:00 11/27/17 09:44 Temperature 98.6 F Pulse Rate 75 80 95 H Respiratory Rate 18 21 24 Blood Pressure 151/90 H 151/90 H Pulse Oximetry 96 100 97 11/27/17 10:00 11/27/17 10:31 11/27/17 10:32 Temperature Pulse Rate 90 97 H 101 H Respiratory Rate 36 H 31 H 46 H Blood Pressure 148/90 H 158/92 H Pulse Oximetry 100 100 96 11/27/17 11:00 11/27/17 12:00 Temperature 98.2 F Pulse Rate 87 88 Respiratory Rate 20 24 Blood Pressure 169/100 H 160/91 H Pulse Oximetry 100 95 Intake & Output 11/26/17 11/27/17 11/27/17 18:59 06:59 18:59 Intake Total 600 / 600 1400 / 1400 200 / 200 Output Total 750 / 750 1300 / 1300 Balance -150 / -150 100 / 100 200 / 200 Weight 54 kg Intake: IV 100 / 100 1000 / 1000 200 / 200 NS + KCl 20 mEq Inj 1,000 ML @ 1000 / 1000 45 mls/hr IV.CONT .[id number] ALEX Rx#:[id number] Rocephin Inj 1,000 MG In NS Inj 100 / 100 200 / 200 100 ML @ 200 mls/hr IV.SIG Q24H ALEX Rx#:[id number] Oral 500 / 500 400 / 400 Output: Urine 750 / 750 1300 / 1300 Other: # Voids 2 Date of Last Bowel Movement 11/27/17 # Bowel Movements 0 Narrative: Alert and eating , not in distress. - Constitutional no acute distress - Routine HEENT Exam Head: Present: normocephalic ENT: Present: mucous membranes moist - Routine Neck Exam Present: supple, JVD - Routine Respiratory Exam Present: decreased breath sounds, CTA bilaterally, rhonchi - Routine Cardiovascular Exam Present: RRR, S1, S2 - Routine Abdominal Exam Present: soft, normoactive bowel sounds, tenderness (in Epi.), distended - Routine Neurological Exam Present: alert, oriented X3 - Detailed Neurological Exam: Coma Scale Verbal Response: Oriented Results - Labs CBC & Chem 7: 11/27/17 04:27 11/27/17 04:27 Laboratory Results - last 24 hr 11/26/17 11/26/17 11/26/17 14:07 14:07 19:47 WBC 14.5 H RBC 4.18 Hgb 14.8 Hct 43.6 MCV 104.4 H D MCH 35.5 H MCHC 34.0 RDW 13.1 Plt Count 255 MPV 7.8 Neut % (Auto) 79.9 H Lymph % (Auto) 11.2 [place] % (Auto) 8.7 H Eos % (Auto) 0.1 Baso % (Auto) 0.1 Neut # (Auto) 11.6 H Lymph # (Auto) 1.6 [place] # (Auto) 1.3 H Eos # (Auto) 0.0 Baso # (Auto) 0.0 WBC Differential . Differential Comment Auto diff final Sodium 130 L 127 L Potassium 2.9 L* 3.2 L Chloride 96 L 94 L Carbon Dioxide 22.1 21.2 Anion Gap 12 12 BUN 5 L 5 L Creatinine 0.59 0.52 Estimated GFR Greater than 89 Greater than 89 Random Glucose 171 H 93 Calcium 8.2 L 8.4 L Phosphorus Magnesium Total Bilirubin AST ALT Alkaline Phosphatase Total Protein Albumin 11/26/17 11/26/17 11/27/17 19:47 23:38 04:27 WBC 14.4 H RBC 4.42 Hgb 15.6 H Hct 45.4 MCV 102.6 H MCH 35.3 H MCHC 34.4 RDW 12.6 Plt Count 320 MPV 7.2 Neut % (Auto) 76.7 H Lymph % (Auto) 15.8 [place] % (Auto) 6.3 Eos % (Auto) 0.7 Baso % (Auto) 0.5 Neut # (Auto) 11.1 H Lymph # (Auto) 2.3 [place] # (Auto) 0.9 Eos # (Auto) 0.1 Baso # (Auto) 0.1 WBC Differential . Differential Comment Auto diff final Sodium 130 L Potassium 3.1 L Chloride 95 L Carbon Dioxide 24.0 Anion Gap 11 BUN 4 L Creatinine 0.52 Estimated GFR Greater than 89 Random Glucose 102 Calcium 8.4 L Phosphorus 1.3 L Magnesium Total Bilirubin AST ALT Alkaline Phosphatase Total Protein Albumin 11/27/17 04:27 WBC RBC Hgb Hct MCV MCH MCHC RDW Plt Count MPV Neut % (Auto) Lymph % (Auto) [place] % (Auto) Eos % (Auto) Baso % (Auto) Neut # (Auto) Lymph # (Auto) [place] # (Auto) Eos # (Auto) Baso # (Auto) WBC Differential Differential Comment Sodium 128 L Potassium 2.8 L* Chloride 93 L Carbon Dioxide 22.4 Anion Gap 13 BUN 4 L Creatinine 0.57 Estimated GFR Greater than 89 Random Glucose 128 H Calcium 9.0 Phosphorus 1.7 L Magnesium 2.0 Total Bilirubin 0.7 AST 19 ALT 17 Alkaline Phosphatase 74 Total Protein 6.9 Albumin 3.4 D Microbiology 11/25/17 14:45 Catheterized Urine Urine Culture - Final No growth in 48 hours Assessment and Plan - Plan 1. Hyponatremia. 2. Hypokalemia. 3. History of alcoholism. 4. Dehydration. 5. Nausea and vomiting, possibly gastroenteritis. 6. Questionable hypothyroidism. The patient has TSH normal at 2.1. Clinically, she is euvolemic. Most likely her hyponatremia is due to decreased oral intake and hypokalemia is also contributed by that. Sodium is now 128, She is still running low potassium. Her magnesium was normal at 2.4. Po4 is also low, all most likely due to alcoholism and decreased oral intake. Encourage oral intake. K-Po4 replaced..
--- NOTE | 2017-11-27 15:29 | P.PNIM ---
Subjective Interval history: Patient states that she feels much better. Denies auditory or visual hallucinations. Denies cp/sob. Patient states that she was vomiting prior to being admitted. Physical Exam Vital signs: Vital Signs 11/26/17 16:00 11/26/17 18:00 11/26/17 20:00 Temperature 98.1 F 98.4 F Pulse Rate 90 85 76 Respiratory Rate 20 Blood Pressure 151/80 H 194/104 H Pulse Oximetry 77 L 99 11/26/17 22:00 11/26/17 22:48 11/26/17 23:00 Temperature Pulse Rate 72 78 71 Respiratory Rate 18 21 Blood Pressure 166/103 H Pulse Oximetry 99 96 11/27/17 00:00 11/27/17 00:01 11/27/17 00:15 Temperature 98.3 F Pulse Rate 84 76 Respiratory Rate 14 22 Blood Pressure 198/106 H 164/96 H Pulse Oximetry 95 96 11/27/17 01:00 11/27/17 01:21 11/27/17 02:00 Temperature Pulse Rate 72 70 Respiratory Rate 18 16 Blood Pressure 153/98 H 143/101 H Pulse Oximetry 98 98 97 11/27/17 03:00 11/27/17 04:00 11/27/17 04:08 Temperature 98.9 F Pulse Rate 73 89 88 Respiratory Rate 18 22 22 Blood Pressure 152/100 H 167/110 H Pulse Oximetry 98 98 99 11/27/17 04:32 11/27/17 04:55 11/27/17 06:00 Temperature Pulse Rate 94 H 70 75 Respiratory Rate 22 20 18 Blood Pressure 160/111 H 127/85 Pulse Oximetry 97 99 96 11/27/17 08:00 11/27/17 09:44 11/27/17 10:00 Temperature 98.6 F Pulse Rate 80 95 H 90 Respiratory Rate 21 24 36 H Blood Pressure 151/90 H 151/90 H Pulse Oximetry 100 97 100 11/27/17 10:31 11/27/17 10:32 11/27/17 11:00 Temperature Pulse Rate 97 H 101 H 87 Respiratory Rate 31 H 46 H 20 Blood Pressure 148/90 H 158/92 H 169/100 H Pulse Oximetry 100 96 100 11/27/17 12:00 11/27/17 13:00 Temperature 98.2 F Pulse Rate 88 78 Respiratory Rate 24 24 Blood Pressure 160/91 H 169/96 H Pulse Oximetry 95 98 Intake & Output 11/26/17 11/27/17 11/27/17 18:59 06:59 18:59 Intake Total 600 / 600 1400 / 1400 200 / 200 Output Total 750 / 750 1300 / 1300 Balance -150 / -150 100 / 100 200 / 200 Weight 54 kg Intake: IV 100 / 100 1000 / 1000 200 / 200 NS + KCl 20 mEq Inj 1,000 ML @ 1000 / 1000 45 mls/hr IV.CONT .[id number] ALEX Rx#:[id number] Rocephin Inj 1,000 MG In NS Inj 100 / 100 200 / 200 100 ML @ 200 mls/hr IV.SIG Q24H ALEX Rx#:[id number] Oral 500 / 500 400 / 400 Output: Urine 750 / 750 1300 / 1300 Other: # Voids 2 Date of Last Bowel Movement 11/27/17 # Bowel Movements 0 Narrative: - Constitutional no acute distress - Routine HEENT Exam Head: Present: normocephalic, atraumatic Eye: Present: EOMI, PERRL - Routine Neck Exam Present: supple - Routine Respiratory Exam Present: CTA bilaterally - Routine Cardiovascular Exam Present: RRR, S1, S2 - Routine Abdominal Exam Present: soft, normoactive bowel sounds - Routine Extremities Exam Present: pulses intact - Routine Neurological Exam Present: alert, CN II-XII intact AAOx3 Results - Labs CBC & Chem 7: 11/27/17 04:27 11/27/17 04:27 Laboratory Results - last 24 hr 11/26/17 11/26/17 11/26/17 14:07 19:47 19:47 WBC RBC Hgb Hct MCV MCH MCHC RDW Plt Count MPV Neut % (Auto) Lymph % (Auto) [place] % (Auto) Eos % (Auto) Baso % (Auto) Neut # (Auto) Lymph # (Auto) [place] # (Auto) Eos # (Auto) Baso # (Auto) WBC Differential Differential Comment Sodium 130 L 127 L Potassium 2.9 L* 3.2 L Chloride 96 L 94 L Carbon Dioxide 22.1 21.2 Anion Gap 12 12 BUN 5 L 5 L Creatinine 0.59 0.52 Estimated GFR Greater than 89 Greater than 89 Random Glucose 171 H 93 Calcium 8.2 L 8.4 L Phosphorus 1.3 L Magnesium Total Bilirubin AST ALT Alkaline Phosphatase Total Protein Albumin 11/26/17 11/27/17 11/27/17 23:38 04:27 04:27 WBC 14.4 H RBC 4.42 Hgb 15.6 H Hct 45.4 MCV 102.6 H MCH 35.3 H MCHC 34.4 RDW 12.6 Plt Count 320 MPV 7.2 Neut % (Auto) 76.7 H Lymph % (Auto) 15.8 [place] % (Auto) 6.3 Eos % (Auto) 0.7 Baso % (Auto) 0.5 Neut # (Auto) 11.1 H Lymph # (Auto) 2.3 [place] # (Auto) 0.9 Eos # (Auto) 0.1 Baso # (Auto) 0.1 WBC Differential . Differential Comment Auto diff final Sodium 130 L 128 L Potassium 3.1 L 2.8 L* Chloride 95 L 93 L Carbon Dioxide 24.0 22.4 Anion Gap 11 13 BUN 4 L 4 L Creatinine 0.52 0.57 Estimated GFR Greater than 89 Greater than 89 Random Glucose 102 128 H Calcium 8.4 L 9.0 Phosphorus 1.7 L Magnesium 2.0 Total Bilirubin 0.7 AST 19 ALT 17 Alkaline Phosphatase 74 Total Protein 6.9 Albumin 3.4 D Microbiology 11/25/17 14:45 Catheterized Urine Urine Culture - Final No growth in 48 hours Assessment and Plan - Plan 1. Encephalopathy Head CT reviewed by me showed scattered areas of low-attenuation white matter which are nonspecific. No hemorrhage or midline shift. Chest x-ray reviewed by me did not show any acute infiltrates. Likely metabolic encephalopathy secondary to severe hyponatremia and a urinary tract infection. Encephalopathy is improving with improvement of hyponatremia. 2. Severe hyponatremia. Patient has history of chronic hyponatremia on sodium chloride tablets. Sodium on admission 116. Continue with fluid restriction. Consult nephrology for further recommendations. Normal TSH 2.1. / Sodium stable at 128. Appreciate nephrology recommendations. As per nephrology documentation thought to be secondary to decreased oral intake. Patient currently on normal saline. Dc normal saline and resume sodium chloride tablets. 3. Uncontrolled hypertension. Anemia likely secondary to decreased oral intake. The patient is currently on amlodipine 10 mg p.o. daily. Systolic blood pressure severely elevated with a systolic blood pressure in the 190s. Continue clonidine as needed, I will add IV hydralazine if clonidine is effective. Continue to monitor vital signs. 7 BP still severely elevated with systolic blood pressure in the 170s. Continue amlodipine 10 minutes p.o. daily. Resume home clonidine, Carvedilol 25 mg po bid. 4. Alcohol abuse. Continue site [facility] protocol. There is no evidence of alcohol withdrawal. 5. Severe hypokalemia - Replace with IV KCL. Likely due to poor oral intake. 6. Hypophosphatemia - K phos repletion ordered per nephrology. 8. Leukocytosis - WBC trending up. UA + with culture negatives. WBC trending down however still 14.4 9. Hypothyroidism. Patient on Levothyroxine at home. Cotnue home dose of Levothyroxine. TSH normal. 10 Depression Per medication history. Resume buspirone, continue to hold Nortriptyline. Discharge Planning: Continue to monitor in intensive care unit. The patient still severely apprehensive.
[2017-11-27] MEDS: Liothyronine 5 MCG Tablet PO SCH (18:52)
[2017-11-27] MEDS: Nystatin/Diphenhydramine/Lidocaine Mouthwash (Adult) 120 ML Botttle SWISH-SWAL SCH ×2 (18:52→21:23)
[2017-11-27 19:34] LABS: Calcium 8.7 mg/dL (8.5-10.1); Carbon Dioxide 20.3 meq/L (21.0-32.0); Potassium 3.5 meq/L (3.5-5.1)
[2017-11-27] MEDS: Topiramate 200 MG Tablet PO SCH (21:23)
[2017-11-27] MEDS: Lisinopril 5 MG Tablet PO SCH (21:24)
[2017-11-27] MEDS: Carvedilol 12.5 MG Tablet PO SCH (21:24)
[2017-11-27] MEDS: Acetaminophen 325 MG Tablet PO PRN (22:24)
[2017-11-28] MEDS: Temazepam 15 MG Capsule PO PRN ×2 (01:16→21:49)
[2017-11-28] MEDS: Levothyroxine 75 MCG Tablet PO SCH (05:45)
[2017-11-28] MEDS: Liothyronine 5 MCG Tablet PO SCH (08:30)
[2017-11-28] MEDS: amLODIPine 10 MG Tablet PO SCH (08:31)
[2017-11-28] MEDS: Lisinopril 5 MG Tablet PO SCH ×2 (08:31→21:48)
[2017-11-28] MEDS: Topiramate 200 MG Tablet PO SCH ×2 (08:32→23:49)
[2017-11-28] MEDS: Senna/Docusate Sodium 8.6/50 MG Tablet PO SCH ×2 (08:32→20:58)
[2017-11-28] MEDS: Carvedilol 12.5 MG Tablet PO SCH ×2 (08:33→21:46)
[2017-11-28] MEDS: Nystatin/Diphenhydramine/Lidocaine Mouthwash (Adult) 120 ML Botttle SWISH-SWAL SCH ×4 (08:34→23:49)
[2017-11-28] MEDS: Sodium Chloride 1 GM Tablet PO SCH ×2 (08:39→21:46)
[2017-11-28] MEDS: Acetaminophen 325 MG Tablet PO PRN (09:43)
--- NOTE | 2017-11-28 13:47 | P.PN ---
Subjective Interval history: Follow up for hyponatremia. Patient is doing well, on room air. Eating/drinking well. [place] dizzy when she got up with PT earlier. However, she is able to use bedside commode. Physical Exam Vital signs: Vital Signs 11/27/17 14:00 11/27/17 15:00 11/27/17 16:00 Temperature 97.9 F Pulse Rate 96 H 76 96 H Respiratory Rate 22 24 23 Blood Pressure 169/96 H 169/96 H 169/96 H Pulse Oximetry 100 100 100 11/27/17 17:00 11/27/17 17:47 11/27/17 18:00 Temperature Pulse Rate 97 H 93 H 91 H Respiratory Rate 22 24 28 H Blood Pressure 157/94 H 157/94 H 157/94 H Pulse Oximetry 98 100 100 11/27/17 20:00 11/27/17 22:00 11/27/17 22:12 Temperature 97.3 F L Pulse Rate 92 H 95 H 84 Respiratory Rate 20 23 22 Blood Pressure 135/78 Pulse Oximetry 100 100 100 11/27/17 22:24 11/27/17 23:00 11/28/17 00:00 Temperature 98.4 F Pulse Rate 85 74 70 Respiratory Rate 27 H 20 17 Blood Pressure 144/84 H 113/68 106/66 Pulse Oximetry 99 100 98 11/28/17 01:00 11/28/17 02:00 11/28/17 03:00 Temperature Pulse Rate 75 65 60 Respiratory Rate 24 40 H 19 Blood Pressure 118/74 116/69 114/65 Pulse Oximetry 100 100 99 11/28/17 04:00 11/28/17 05:00 11/28/17 06:00 Temperature 98 F Pulse Rate 71 57 L 63 Respiratory Rate 26 H 16 18 Blood Pressure 125/81 108/67 133/69 Pulse Oximetry 98 100 100 11/28/17 07:00 11/28/17 08:00 11/28/17 09:00 Temperature 97.9 F Pulse Rate 63 65 80 Respiratory Rate 31 H 20 24 Blood Pressure 144/79 H 150/80 H 153/89 H Pulse Oximetry 100 99 100 11/28/17 10:00 11/28/17 11:00 11/28/17 12:00 Temperature 98.4 F Pulse Rate 73 61 64 Respiratory Rate 22 18 26 H Blood Pressure 116/62 104/65 Pulse Oximetry 99 99 99 11/28/17 12:05 Temperature Pulse Rate 64 Respiratory Rate 22 Blood Pressure 124/69 Pulse Oximetry 100 Intake & Output 11/27/17 11/28/17 11/28/17 18:59 06:59 18:59 Intake Total 3185 / 3185 1160 / 1160 100 / 100 Output Total 1000 / 1000 1100 / 1100 Balance 2185 / 2185 60 / 60 100 / 100 Weight 56.7 kg Intake: IV 1265 / 1265 200 / 200 100 / 100 NS + KCl 20 mEq Inj 1,000 ML @ 825 / 825 45 mls/hr IV.CONT .[id number] [facility] Rx#:[id number] Potassium Phosphate Inj 15 MMOL 240 / 240 In NS Inj 150 ML @ 38.75 mls/ hr IV.SIG ONCE ONE Rx#:[id number] Rocephin Inj 1,000 MG In NS Inj 200 / 200 100 / 100 100 ML @ 200 mls/hr IV.SIG Q24H [facility] Rx#:[id number] Flagyl 500 MG Inj 100 ML @ 100 200 / 200 mls/hr IV.SIG Q8H [facility] Rx#: [id number] Oral 1920 / 1920 960 / 960 Output: Urine 1000 / 1000 1100 / 1100 Other: # Voids 3 0 Date of Last Bowel Movement 11/27/17 11/27/17 11/27/17 # Bowel Movements 3 0 Results - Labs CBC & Chem 7: 11/30/17 12:11 11/30/17 04:18 Laboratory Results - last 24 hr 11/27/17 18:55 Sodium 127 L Potassium 3.5 Chloride 94 L Carbon Dioxide 20.3 L Anion Gap 13 BUN 6 L Creatinine 0.77 Estimated GFR 77 L Random Glucose 100 Calcium 8.7 Assessment and Plan - Plan 1. Encephalopathy Head CT showed scattered areas of low-attenuation white matter which are nonspecific. No hemorrhage or midline shift. Chest x-ray did not show any acute infiltrates. Likely metabolic encephalopathy secondary to severe hyponatremia and a urinary tract infection. Encephalopathy is improving with improvement of hyponatremia. 2. Severe hyponatremia. Patient has history of chronic hyponatremia on sodium chloride tablets. Sodium on admission 116. Continue with fluid restriction. Nephrology is following. Normal TSH 2.1. Na improved to 128. 3. Uncontrolled hypertension. Continue amlodipine 10 mg p.o. daily. Resume home clonidine, Carvedilol 25 mg po bid. 4. Alcohol abuse. Continue site [facility] protocol. There is no evidence of alcohol withdrawal. 5. Severe hypokalemia - Replace with IV KCL. Likely due to poor oral intake. 6. Hypophosphatemia - K phos repletion ordered per nephrology. 8. Leukocytosis - WBC trending up. UA + with culture negatives. WBC trending down however still 14.4 9. Hypothyroidism. Patient on Levothyroxine at home. [place] home dose of Levothyroxine. TSH normal. 10 Depression Per medication history. Resume buspirone, continue to hold Nortriptyline.
[2017-11-28] MEDS: Naproxen 375 MG Tablet PO PRN ×2 (16:34→21:49)
--- NOTE | 2017-11-28 16:40 | P.PNNP ---
Subjective Interval history: Patient is a 57 year-old female with past medical history of hypothyroidism, anxiety, possibility of alcoholism who came to the hospital with complaint of altered mental status. Nephrology was called to see the patient for low sodium level. Her sodium level on presentation was 116. Up out of bed on bedside commode. Complains of weakness. No new labs today <Tawana Benitez - Last Filed: 11/28/17 16:33> Physical Exam Vital signs: Vital Signs 11/27/17 17:00 11/27/17 17:47 11/27/17 18:00 Temperature Pulse Rate 97 H 93 H 91 H Respiratory Rate 22 24 28 H Blood Pressure 157/94 H 157/94 H 157/94 H Pulse Oximetry 98 100 100 11/27/17 20:00 11/27/17 22:00 11/27/17 22:12 Temperature 97.3 F L Pulse Rate 92 H 95 H 84 Respiratory Rate 20 23 22 Blood Pressure 135/78 Pulse Oximetry 100 100 100 11/27/17 22:24 11/27/17 23:00 11/28/17 00:00 Temperature 98.4 F Pulse Rate 85 74 70 Respiratory Rate 27 H 20 17 Blood Pressure 144/84 H 113/68 106/66 Pulse Oximetry 99 100 98 11/28/17 01:00 11/28/17 02:00 11/28/17 03:00 Temperature Pulse Rate 75 65 60 Respiratory Rate 24 40 H 19 Blood Pressure 118/74 116/69 114/65 Pulse Oximetry 100 100 99 11/28/17 04:00 11/28/17 05:00 11/28/17 06:00 Temperature 98 F Pulse Rate 71 57 L 63 Respiratory Rate 26 H 16 18 Blood Pressure 125/81 108/67 133/69 Pulse Oximetry 98 100 100 11/28/17 07:00 11/28/17 08:00 11/28/17 09:00 Temperature 97.9 F Pulse Rate 63 65 80 Respiratory Rate 31 H 20 24 Blood Pressure 144/79 H 150/80 H 153/89 H Pulse Oximetry 100 99 100 11/28/17 10:00 11/28/17 11:00 11/28/17 12:00 Temperature 98.4 F Pulse Rate 73 61 64 Respiratory Rate 22 18 26 H Blood Pressure 116/62 104/65 Pulse Oximetry 99 99 99 11/28/17 12:05 11/28/17 13:00 11/28/17 14:00 Temperature Pulse Rate 64 67 72 Respiratory Rate 22 19 20 Blood Pressure 124/69 145/83 H 118/67 Pulse Oximetry 100 100 100 11/28/17 15:00 11/28/17 16:00 Temperature 98.5 F Pulse Rate 68 66 Respiratory Rate 17 20 Blood Pressure 105/59 L 110/66 Pulse Oximetry 100 100 Intake & Output 11/27/17 11/28/17 11/28/17 18:59 06:59 18:59 Intake Total 3185 / 3185 1160 / 1160 200 / 200 Output Total 1000 / 1000 1100 / 1100 Balance 2185 / 2185 60 / 60 200 / 200 Weight 56.7 kg Intake: IV 1265 / 1265 200 / 200 200 / 200 NS + KCl 20 mEq Inj 1,000 ML @ 825 / 825 45 mls/hr IV.CONT .[id number] [facility]LEX Rx#:[id number] Potassium Phosphate Inj 15 MMOL 240 / 240 In NS Inj 150 ML @ 38.75 mls/ hr IV.SIG ONCE ONE Rx#:[id number] Rocephin Inj 1,000 MG In NS Inj 200 / 200 100 / 100 100 ML @ 200 mls/hr IV.SIG Q24H [facility]LEX Rx#:[id number] Flagyl 500 MG Inj 100 ML @ 100 200 / 200 100 / 100 mls/hr IV.SIG Q8H [facility] Rx#: [id number] Oral 1920 / 1920 960 / 960 Output: Urine 1000 / 1000 1100 / 1100 Other: # Voids 3 0 Date of Last Bowel Movement 11/27/17 11/27/17 11/27/17 # Bowel Movements 3 0 - Constitutional no acute distress - Routine HEENT Exam Head: Present: normocephalic ENT: Present: mucous membranes moist - Routine Neck Exam Present: supple. Absent: JVD - Routine Respiratory Exam Present: decreased breath sounds. Absent: rales, rhonchi - Routine Cardiovascular Exam Present: RRR - Routine Abdominal Exam Present: soft, normoactive bowel sounds - Routine Extremities Exam Absent: edema - Routine Skin Exam Present: intact, dry, warm - Routine Neurological Exam Present: alert <SepidehmannTawana - Last Filed: 11/28/17 16:33> Vital signs: Vital Signs 11/27/17 22:24 11/27/17 23:00 11/28/17 00:00 Temperature 98.4 F Pulse Rate 85 74 70 Respiratory Rate 27 H 20 17 Blood Pressure 144/84 H 113/68 106/66 Pulse Oximetry 99 100 98 11/28/17 01:00 11/28/17 02:00 11/28/17 03:00 Temperature Pulse Rate 75 65 60 Respiratory Rate 24 40 H 19 Blood Pressure 118/74 116/69 114/65 Pulse Oximetry 100 100 99 11/28/17 04:00 11/28/17 05:00 11/28/17 06:00 Temperature 98 F Pulse Rate 71 57 L 63 Respiratory Rate 26 H 16 18 Blood Pressure 125/81 108/67 133/69 Pulse Oximetry 98 100 100 11/28/17 07:00 11/28/17 08:00 11/28/17 09:00 Temperature 97.9 F Pulse Rate 63 65 80 Respiratory Rate 31 H 20 24 Blood Pressure 144/79 H 150/80 H 153/89 H Pulse Oximetry 100 99 100 11/28/17 10:00 11/28/17 11:00 11/28/17 12:00 Temperature 98.4 F Pulse Rate 73 61 64 Respiratory Rate 22 18 26 H Blood Pressure 116/62 104/65 Pulse Oximetry 99 99 99 11/28/17 12:05 11/28/17 13:00 11/28/17 14:00 Temperature Pulse Rate 64 67 72 Respiratory Rate 22 19 20 Blood Pressure 124/69 145/83 H 118/67 Pulse Oximetry 100 100 100 11/28/17 15:00 11/28/17 16:00 11/28/17 17:00 Temperature 98.5 F Pulse Rate 68 66 61 Respiratory Rate 17 20 23 Blood Pressure 105/59 L 110/66 121/67 Pulse Oximetry 100 100 100 11/28/17 18:00 11/28/17 20:00 11/28/17 22:00 Temperature 98.2 F 98.1 F Pulse Rate 75 75 69 Respiratory Rate 21 16 17 Blood Pressure 165/88 H 128/71 125/74 Pulse Oximetry 79 L 99 99 Intake & Output 11/28/17 11/28/17 11/29/17 06:59 18:59 06:59 Intake Total 1160 / 1160 1200 / 1200 100 / 100 Output Total 1100 / 1100 1500 / 1500 Balance 60 / 60 -300 / -300 100 / 100 Weight 56.7 kg Intake: IV 200 / 200 200 / 200 100 / 100 Rocephin Inj 1,000 MG In NS Inj 100 / 100 100 ML @ 200 mls/hr IV.SIG Q24H [facility] Rx#:[id number] Flagyl 500 MG Inj 100 ML @ 100 200 / 200 100 / 100 100 / 100 mls/hr IV.SIG Q8H [facility] Rx#: [id number] Oral 960 / 960 1000 / 1000 Output: Urine 1100 / 1100 1500 / 1500 Other: # Voids 0 3 Date of Last Bowel Movement 11/27/17 11/27/17 11/27/17 # Bowel Movements 0 <Rebecca Alicea - Last Filed: 11/28/17 22:20> Assessment and Plan - Assessment (1) Acute hyponatremia Code(s): E87.1 - Hypo-osmolality and hyponatremia Status: Acute (2) Acute alteration in mental status Code(s): R41.82 - Altered mental status, unspecified Status: Acute (3) Acute UTI Code(s): N39.0 - Urinary tract infection, site not specified Status: Acute - Plan Most likely her hyponatremia is due to decreased oral intake and hypokalemia is also contributed by that. Patient is euvolemic Sodium was 127 yesterday and hypokalemia has resolved. Continue sodium chloride tab replacement Will monitor sodium levels Encourage oral intake Will order labs for tomorrow <Tawana Benitez - Last Filed: 11/28/17 16:33> - Assessment (1) Acute hyponatremia Code(s): E87.1 - Hypo-osmolality and hyponatremia Status: Acute (2) Acute alteration in mental status Code(s): R41.82 - Altered mental status, unspecified Status: Acute (3) Acute UTI Code(s): N39.0 - Urinary tract infection, site not specified Status: Acute - Attending Attestation Patient seen and examined, agree with above. K is better and Na is 127. <Rebecca Alicea - Last Filed: 11/28/17 22:20>
[2017-11-28 20:21] LABS: Calcium 9.1 mg/dL (8.5-10.1); Carbon Dioxide 22.5 meq/L (21.0-32.0); Potassium 3.6 meq/L (3.5-5.1)
[2017-11-29] MEDS: Levothyroxine 75 MCG Tablet PO SCH (05:00)
--- NOTE | 2017-11-29 09:03 | P.PN ---
Subjective Interval history: Follow-up hyponatremia Physical Exam Vital signs: Vital Signs 11/28/17 10:00 11/28/17 11:00 11/28/17 12:00 Temperature 98.4 F Pulse Rate 73 61 64 Respiratory Rate 22 18 26 H Blood Pressure 116/62 104/65 Pulse Oximetry 99 99 99 11/28/17 12:05 11/28/17 13:00 11/28/17 14:00 Temperature Pulse Rate 64 67 72 Respiratory Rate 22 19 20 Blood Pressure 124/69 145/83 H 118/67 Pulse Oximetry 100 100 100 11/28/17 15:00 11/28/17 16:00 11/28/17 17:00 Temperature 98.5 F Pulse Rate 68 66 61 Respiratory Rate 17 20 23 Blood Pressure 105/59 L 110/66 121/67 Pulse Oximetry 100 100 100 11/28/17 18:00 11/28/17 20:00 11/28/17 22:00 Temperature 98.2 F 98.1 F Pulse Rate 75 75 69 Respiratory Rate 21 16 17 Blood Pressure 165/88 H 128/71 125/74 Pulse Oximetry 79 L 99 99 11/29/17 00:00 11/29/17 04:00 Temperature 97.7 F 98.4 F Pulse Rate 64 67 Respiratory Rate 18 19 Blood Pressure 119/64 120/74 Pulse Oximetry 99 97 Intake & Output 11/28/17 11/29/17 11/29/17 18:59 06:59 18:59 Intake Total 1200 / 1200 100 / 100 Output Total 1500 / 1500 Balance -300 / -300 100 / 100 Weight 56.7 kg Intake: IV 200 / 200 100 / 100 Rocephin Inj 1,000 MG In NS Inj 100 / 100 100 ML @ 200 mls/hr IV.SIG Q24H [facility] Rx#:[id number] Flagyl 500 MG Inj 100 ML @ 100 100 / 100 100 / 100 mls/hr IV.SIG Q8H [facility] Rx#: [id number] Oral 1000 / 1000 Output: Urine 1500 / 1500 Other: # Voids 3 Date of Last Bowel Movement 11/27/17 11/27/17 Results - Labs CBC & Chem 7: 11/27/17 04:27 11/28/17 18:56 Laboratory Results - last 24 hr 11/28/17 18:56 Sodium 133 L Potassium 3.6 Chloride 99 Carbon Dioxide 22.5 Anion Gap 12 BUN 10 Creatinine 0.77 Estimated GFR 77 L Random Glucose 90 Calcium 9.1 - Imaging ITS Microbiology 11/25/17 14:45 Catheterized Urine Urine Culture - Final No growth in 48 hours Impressions Chest X-Ray 11/25/17 13:46 CONCLUSION: No acute cardiopulmonary disease. Head CT 11/25/17 13:46 CONCLUSION: 1. Scattered areas of low-attenuation white matter could be nonspecific white matter changes. 2. No hemorrhage or midline shift. Assessment and Plan - Plan 1. Encephalopathy Head CT showed scattered areas of low-attenuation white matter which are nonspecific. No hemorrhage or midline shift. Chest x-ray did not show any acute infiltrates. Likely metabolic encephalopathy secondary to severe hyponatremia and a urinary tract infection. Encephalopathy is improving with improvement of hyponatremia. 2. Severe hyponatremia. Patient has history of chronic hyponatremia on sodium chloride tablets. Sodium on admission 116. Continue with fluid restriction. Nephrology is following. Normal TSH 2.1. Na improved to 128. 3. Uncontrolled hypertension. Continue amlodipine 10 minutes p.o. daily. Resume home clonidine, Carvedilol 25 mg po bid. 4. Alcohol abuse. Continue site [facility] protocol. There is no evidence of alcohol withdrawal. 5. Severe hypokalemia - Replace with IV KCL. Likely due to poor oral intake. 6. Hypophosphatemia - K phos repletion ordered per nephrology. 8. Leukocytosis - WBC trending up. UA + with culture negatives. WBC trending down however still 14.4. Repeat CBC pending. Patient on IV Rocephin and Flagyl will consider stopping 9. Hypothyroidism. Patient on Levothyroxine at home. Continue home dose of Levothyroxine. TSH normal. 10 Depression Per medication history. Resume buspirone, continue to hold Nortriptyline.
--- NOTE | 2017-11-29 09:12 | P.DCO ---
- Physical Therapy Order: Evaluate and treat, Improve ambulation, Strength and gait training - Certification I have seen patient Birdie Roman on 11/29/17. My clinical findings support the need for the requested home health care services because: Deconditioned with increased weakness I certify that my clinical findings support that this patient is homebound because: Need for psychosocial assistance
[2017-11-29] MEDS: Lisinopril 5 MG Tablet PO SCH ×2 (10:04→20:00)
[2017-11-29] MEDS: Senna/Docusate Sodium 8.6/50 MG Tablet PO SCH (10:04)
[2017-11-29] MEDS: Carvedilol 12.5 MG Tablet PO SCH ×2 (10:05→20:00)
[2017-11-29] MEDS: Nystatin/Diphenhydramine/Lidocaine Mouthwash (Adult) 120 ML Botttle SWISH-SWAL SCH ×4 (10:05→20:00)
[2017-11-29] MEDS: Liothyronine 5 MCG Tablet PO SCH (10:05)
[2017-11-29] MEDS: Sodium Chloride 1 GM Tablet PO SCH ×2 (10:05→20:00)
[2017-11-29] MEDS: amLODIPine 10 MG Tablet PO SCH (10:05)
[2017-11-29] MEDS: Topiramate 200 MG Tablet PO SCH ×2 (10:07→20:00)
--- NOTE | 2017-11-29 13:05 | P.PN ---
Subjective Interval history: Follow-up hyponatremia. States she is doing okay denies headache or dizziness. She is homeless lives in a jeep with her boyfriend. Physical Exam Vital signs: Vital Signs 11/28/17 14:00 11/28/17 15:00 11/28/17 16:00 Temperature 98.5 F Pulse Rate 72 68 66 Respiratory Rate 20 17 20 Blood Pressure 118/67 105/59 L 110/66 Pulse Oximetry 100 100 100 11/28/17 17:00 11/28/17 18:00 11/28/17 20:00 Temperature 98.2 F Pulse Rate 61 75 75 Respiratory Rate 23 21 16 Blood Pressure 121/67 165/88 H 128/71 Pulse Oximetry 100 79 L 99 11/28/17 22:00 11/29/17 00:00 11/29/17 04:00 Temperature 98.1 F 97.7 F 98.4 F Pulse Rate 69 64 67 Respiratory Rate 17 18 19 Blood Pressure 125/74 119/64 120/74 Pulse Oximetry 99 99 97 11/29/17 12:00 Temperature 97.8 F Pulse Rate 76 Respiratory Rate 16 Blood Pressure 114/70 Pulse Oximetry 98 Intake & Output 11/28/17 11/29/17 11/29/17 18:59 06:59 18:59 Intake Total 1200 / 1200 200 / 200 100 / 100 Output Total 1500 / 1500 Balance -300 / -300 200 / 200 100 / 100 Weight 56.7 kg Intake: IV 200 / 200 200 / 200 100 / 100 Rocephin Inj 1,000 MG In NS Inj 100 / 100 100 ML @ 200 mls/hr IV.SIG Q24H [facility] Rx#:[id number] Flagyl 500 MG Inj 100 ML @ 100 100 / 100 200 / 200 100 / 100 mls/hr IV.SIG Q8H [facility] Rx#: [id number] Oral 1000 / 1000 Output: Urine 1500 / 1500 Other: # Voids 3 Date of Last Bowel Movement 11/27/17 11/27/17 Narrative: - Constitutional no acute distress - Routine Neck Exam Present: supple - Routine Respiratory Exam Present: CTA bilaterally - Routine Cardiovascular Exam Present: RRR, S1, S2 - Routine Abdominal Exam Present: soft, normoactive bowel sounds - Routine Extremities Exam Present: pulses intact - Routine Neurological Exam Present: alert, CN II-XII intact AAOx3 Results - Labs CBC & Chem 7: 11/27/17 04:27 11/28/17 18:56 Laboratory Results - last 24 hr 11/28/17 18:56 Sodium 133 L Potassium 3.6 Chloride 99 Carbon Dioxide 22.5 Anion Gap 12 BUN 10 Creatinine 0.77 Estimated GFR 77 L Random Glucose 90 Calcium 9.1 Microbiology 11/25/17 14:45 Catheterized Urine Urine Culture - Final No growth in 48 hours - Imaging ITS Impressions Chest X-Ray 11/25/17 13:46 CONCLUSION: No acute cardiopulmonary disease. Head CT 11/25/17 13:46 CONCLUSION: 1. Scattered areas of low-attenuation white matter could be nonspecific white matter changes. 2. No hemorrhage or midline shift. - Procedures none Assessment and Plan - Assessment (1) Acute hyponatremia Code(s): E87.1 - Hypo-osmolality and hyponatremia Status: Acute - Plan 1. Encephalopathy Head CT showed scattered areas of low-attenuation white matter which are nonspecific. No hemorrhage or midline shift. Chest x-ray did not show any acute infiltrates. Likely metabolic encephalopathy secondary to severe hyponatremia and a urinary tract infection. Encephalopathy is resolving with improvement of hyponatremia. 2. Severe hyponatremia. Patient has history of chronic hyponatremia on sodium chloride tablets. Sodium on admission 116. Continue with fluid restriction. Nephrology is following, etiology from decreased oral intake. Normal TSH 2.1. 3. Uncontrolled hypertension. Improved Continue amlodipine 10 minutes p.o. daily. Resume home clonidine, Carvedilol 25 mg po bid. 4. Alcohol abuse. Continue site [facility] protocol. There is no evidence of alcohol withdrawal. 5. Severe hypokalemia - Replace with IV KCL. Likely due to poor oral intake. 6. Hypophosphatemia - K phos repletion ordered per nephrology. 8. Leukocytosis - WBC trending up. UA + with culture negatives. WBC trending down however still 14.4. Repeat CBC pending. Patient on IV Rocephin and Flagyl will discontinue 9. Hypothyroidism. Patient on Levothyroxine at home. Continue home dose of Levothyroxine. TSH normal. 10 Depression Per medication history. Resume buspirone, continue to hold Nortriptyline. Discharge Planning: Possible discharge today with home care
[2017-11-29 16:08] LABS: Baso # (Auto) 0.1 th/mm3 (0.0-0.2); Baso % (Auto) 0.6 % (0.0-2.0); Eos # (Auto) 0.4 th/mm3 (0.0-0.4); Hematocrit 35.3 % (35.0-46.0); Hemoglobin 12.2 gm/dL (11.6-15.3); Lymph # (Auto) 2.5 th/mm3 (1.0-4.8); Lymph % (Auto) 24.3 % (9.0-44.0); Mean Corpuscular HGB Conc 34.5 % (32.0-36.0); Mean Corpuscular Hemoglobin 35.7 pg (27.0-34.0); Mean Corpuscular Volume 103.6 fL (80.0-100.0); Mean Platelet Volume 7.2 fL (7.0-11.0); Mono # (Auto) 0.6 th/mm3 (0.0-0.9); Mono % (Auto) 6.2 % (0.0-8.0); Neut # (Auto) 6.6 th/mm3 (1.8-7.7); Neut % (Auto) 64.9 % (16.0-70.0); Platelet Count 288 th/mm3 (150-450); Red Blood Count 3.41 mil/mm3 (4.00-5.30); White Blood Count 10.2 th/mm3 (4.0-11.0)
[2017-11-29 16:25] LABS: Calcium 8.6 mg/dL (8.5-10.1); Carbon Dioxide 19.5 meq/L (21.0-32.0); Magnesium 1.8 mg/dL (1.5-2.5)
[2017-11-29 16:37] LABS: Potassium 2.9 meq/L (3.5-5.1)
--- NOTE | 2017-11-29 16:44 | P.PNADD ---
Addendum to Inpatient Note Reason for Addendum: Corrected Documentation (Potassium 2.9 with ongoing loose stool. Replace with 60 mg p.o. 1 and discontinue Aye-Colace. Repeat BMP and magnesium in the morning will hold discharge.)
[2017-11-29] MEDS: Temazepam 15 MG Capsule PO PRN (22:44)
[2017-11-30 05:05] LABS: Calcium 8.9 mg/dL (8.5-10.1); Carbon Dioxide 19.5 meq/L (21.0-32.0)
[2017-11-30] MEDS: Levothyroxine 75 MCG Tablet PO SCH (05:43)
[2017-11-30] MEDS: Nystatin/Diphenhydramine/Lidocaine Mouthwash (Adult) 120 ML Botttle SWISH-SWAL SCH ×4 (08:09→20:26)
[2017-11-30] MEDS: Lisinopril 5 MG Tablet PO SCH ×2 (08:09→20:26)
[2017-11-30] MEDS: Sodium Chloride 1 GM Tablet PO SCH ×2 (08:10→20:26)
[2017-11-30] MEDS: Topiramate 200 MG Tablet PO SCH ×2 (08:10→20:26)
[2017-11-30] MEDS: Liothyronine 5 MCG Tablet PO SCH (08:10)
[2017-11-30] MEDS: amLODIPine 10 MG Tablet PO SCH (08:10)
[2017-11-30] MEDS: Carvedilol 12.5 MG Tablet PO SCH ×2 (08:10→20:26)
--- NOTE | 2017-11-30 08:55 | P.DS ---
Date of admission: 11/25/17 16:31 Primary care physician: No Primary Care Physician Brief History from admission: Patient is a 57-year-old female with past medical history of hyponatremia on sodium tablets presented to the emergency room with encephalopathy. She is a poor historian she thinks it is 1985, she knows who the president is but she thinks she is in [place]. She admits to nausea and vomiting for the past 2 days. She denies any diarrhea. She denies eating anything new at home. She denies any sick contacts. She denies any burning in urination or increased urinary frequency. She states that her called EMS for her. She admits to fevers and chills however she never took an official temperature at home. Per nurse, patient is here on a road trip. To me patient denied any diarrhea. Initially she said yes when asked if she had any chest pain or shortness of breath but then she says no when I asked her again. She seemed annoyed with my question. She denied again any chest pain shortness of breath however after I asked her a third time. Per EMR documentation: "Pt reported that she had been vomiting and having diarrhea to triage but denied this to ED physician. She was very confused and per staff she said her was with her and pointed out a trash can. She cannot tell ED physician how many times she vomited and does not think that she ever did. She denied complaints but every time ED physician asked her a question she just stared at her and did not respond." Past medical history: Questionable history of hypothyroidism, anxiety, alcohol use daily states it is only 2 beers however patient is a poor historian therefore unable to assess. History of headaches. She is a smoker. Apparently she has chronic hyponatremia Past surgical history: None per patient Family history: She complains that her parents are healthy. When I asked if they are living she says I think so. Social history: Smokes a pack a day for many years. Admits to drinking daily to beers but does not elaborate much. Denies any prior history of seizures. Denies any illegal drug use. CODE STATUS: Patient states she does not want to be resuscitated however patient is confused therefore will make her full code for now. DS: Diagnosis - Discharge Diagnosis (1) Acute hyponatremia Status: Acute DS: Summary Hospital Course: 1. Encephalopathy Head CT showed scattered areas of low-attenuation white matter which are nonspecific. No hemorrhage or midline shift. Chest x-ray did not show any acute infiltrates. Likely metabolic encephalopathy secondary to severe hyponatremia and a urinary tract infection. Encephalopathy is resolving with improvement of hyponatremia. 2. Severe hyponatremia. Patient has history of chronic hyponatremia on sodium chloride tablets. Sodium on admission 116. Continue with fluid restriction. Nephrology is following, etiology from decreased oral intake. TSH 10 3. Uncontrolled hypertension. Improved Continue amlodipine 10 minutes p.o. daily. Resume home clonidine, Carvedilol 25 mg po bid. 4. Alcohol abuse. Continue site [facility] protocol. There is no evidence of alcohol withdrawal. 5. Severe hypokalemia - Replaced. Likely due to poor oral intake. 6. Hypophosphatemia - K phos repleted. 8. Leukocytosis - WBC trending up. UA + with culture negatives. WBC trending down dc IV Rocephin and Flagyl 9. Hypothyroidism. Patient on Levothyroxine at home. Continue home dose of Levothyroxine. Rpt TSH 4 wks 10 Depression Per medication history. Resume buspirone, continue to hold Nortriptyline. Discharge Planning: Stable for dc today. Dw PT no need for o/p f/u - Time Spent with Patient Total time spent providing and/or coordinating discharge services: Greater than 30 minutes - Quality: VTE Deep Vein Thrombosis/Pulmonary Embolism Present on Admission: No Exam Vital signs: Vital Signs 11/29/17 12:00 11/29/17 15:58 11/29/17 20:00 Temperature 97.8 F 97.4 F L 97.2 F L Pulse Rate 76 80 77 Respiratory Rate 16 22 Blood Pressure 114/70 126/83 112/67 Pulse Oximetry 98 100 99 11/29/17 20:05 11/30/17 00:00 11/30/17 04:00 Temperature 97.7 F 97.4 F L Pulse Rate 85 72 71 Respiratory Rate 22 20 Blood Pressure 129/79 130/79 Pulse Oximetry 99 98 Intake & Output 11/29/17 11/30/17 11/30/17 18:59 06:59 18:59 Intake Total 820 / 820 360 / 360 Balance 820 / 820 360 / 360 Intake: IV 100 / 100 Flagyl 500 MG Inj 100 ML @ 100 100 / 100 mls/hr IV.SIG Q8H ALEX Rx#: [id number] Oral 720 / 720 360 / 360 Other: # Voids 5 3 # Bowel Movements 5 Narrative: - Constitutional no acute distress - Routine Neck Exam Present: supple - Routine Respiratory Exam Present: CTA bilaterally - Routine Cardiovascular Exam Present: RRR, S1, S2 - Routine Abdominal Exam Present: soft, normoactive bowel sounds - Routine Extremities Exam Present: pulses intact - Routine Neurological Exam Present: alert, CN II-XII intact AAOx3 Results Procedures completed during hospitalization: none Labs on day of discharge: Labs from last 24 hours 11/30/17 11/29/17 11/29/17 04:18 15:40 15:40 WBC RBC Hgb Hct MCV MCH MCHC RDW Plt Count MPV Neut % (Auto) Lymph % (Auto) [place] % (Auto) Eos % (Auto) Baso % (Auto) Neut # (Auto) Lymph # (Auto) [place] # (Auto) Eos # (Auto) Baso # (Auto) WBC Differential Differential Comment Sodium 139 137 Potassium 4.0 D 2.9 L* Chloride 109 H 105 Carbon Dioxide 19.5 L 19.5 L Anion Gap 11 13 BUN 10 9 Creatinine 0.81 0.75 Estimated GFR 73 L 79 L Random Glucose 88 88 Calcium 8.9 8.6 Magnesium 2.0 1.8 TSH 10.500 H 11/29/17 15:40 WBC 10.2 RBC 3.41 L Hgb 12.2 Hct 35.3 MCV 103.6 H MCH 35.7 H MCHC 34.5 RDW 13.0 Plt Count 288 MPV 7.2 Neut % (Auto) 64.9 Lymph % (Auto) 24.3 [place] % (Auto) 6.2 Eos % (Auto) 4.0 Baso % (Auto) 0.6 Neut # (Auto) 6.6 Lymph # (Auto) 2.5 [place] # (Auto) 0.6 Eos # (Auto) 0.4 Baso # (Auto) 0.1 WBC Differential . Differential Comment Auto diff final Sodium Potassium Chloride Carbon Dioxide Anion Gap BUN Creatinine Estimated GFR Random Glucose Calcium Magnesium TSH - Impressions ITS Impressions Chest X-Ray 11/25/17 13:46 CONCLUSION: No acute cardiopulmonary disease. Head CT 11/25/17 13:46 CONCLUSION: 1. Scattered areas of low-attenuation white matter could be nonspecific white matter changes. 2. No hemorrhage or midline shift. Discharge Plan - Discharge Disposition Patient Disposition: 01 Discharge Home - Discharge Condition Condition: Stable - Discharge Order Discharge Orders: Discharge Order (Routine); Ordered 11/30/17 Ordered By: Erik Landaverde - Physicians Team Primary Care Provider: Primary Care Eliza William Attending Provider: Erik Landaverde Other Providers: Rebecca Alicea MD
--- NOTE | 2017-11-30 11:22 | P.PN ---
Subjective Interval history: Follow-up diarrhea. States she continues to have dark loose stools after each meal denies nausea and abdominal pain. Aye-Colace has been discontinued. Discussed with nursing, noted brown loose stool this morning. She also reports of weakness and dizziness Physical Exam Vital signs: Vital Signs 11/29/17 12:00 11/29/17 15:58 11/29/17 20:00 Temperature 97.8 F 97.4 F L 97.2 F L Pulse Rate 76 80 77 Respiratory Rate 16 22 Blood Pressure 114/70 126/83 112/67 Pulse Oximetry 98 100 99 11/29/17 20:05 11/30/17 00:00 11/30/17 04:00 Temperature 97.7 F 97.4 F L Pulse Rate 85 72 71 Respiratory Rate 22 20 Blood Pressure 129/79 130/79 Pulse Oximetry 99 98 11/30/17 08:00 Temperature 98.0 F Pulse Rate 78 Respiratory Rate 17 Blood Pressure 164/92 H Pulse Oximetry 100 Intake & Output 11/29/17 11/30/17 11/30/17 18:59 06:59 18:59 Intake Total 820 / 820 360 / 360 Balance 820 / 820 360 / 360 Intake: IV 100 / 100 Flagyl 500 MG Inj 100 ML @ 100 100 / 100 mls/hr IV.SIG Q8H ALEX Rx#: [id number] Oral 720 / 720 360 / 360 Other: # Voids 5 3 # Bowel Movements 5 Narrative: - Constitutional no acute distress - Routine Respiratory Exam Present: CTA bilaterally - Routine Cardiovascular Exam Present: RRR, S1, S2 - Routine Abdominal Exam Present: soft, normoactive bowel sounds - Routine Extremities Exam Present: pulses intact - Routine Neurological Exam Present: alert, CN II-XII intact AAOx3 Results - Labs CBC & Chem 7: 11/29/17 15:40 11/30/17 04:18 Laboratory Results - last 24 hr 11/29/17 11/29/17 11/29/17 15:40 15:40 15:40 WBC 10.2 RBC 3.41 L Hgb 12.2 Hct 35.3 MCV 103.6 H MCH 35.7 H MCHC 34.5 RDW 13.0 Plt Count 288 MPV 7.2 Neut % (Auto) 64.9 Lymph % (Auto) 24.3 [place] % (Auto) 6.2 Eos % (Auto) 4.0 Baso % (Auto) 0.6 Neut # (Auto) 6.6 Lymph # (Auto) 2.5 [place] # (Auto) 0.6 Eos # (Auto) 0.4 Baso # (Auto) 0.1 WBC Differential . Differential Comment Auto diff final Sodium 137 Potassium 2.9 L* Chloride 105 Carbon Dioxide 19.5 L Anion Gap 13 BUN 9 Creatinine 0.75 Estimated GFR 79 L Random Glucose 88 Calcium 8.6 Magnesium 1.8 TSH 10.500 H 11/30/17 04:18 WBC RBC Hgb Hct MCV MCH MCHC RDW Plt Count MPV Neut % (Auto) Lymph % (Auto) [place] % (Auto) Eos % (Auto) Baso % (Auto) Neut # (Auto) Lymph # (Auto) [place] # (Auto) Eos # (Auto) Baso # (Auto) WBC Differential Differential Comment Sodium 139 Potassium 4.0 D Chloride 109 H Carbon Dioxide 19.5 L Anion Gap 11 BUN 10 Creatinine 0.81 Estimated GFR 73 L Random Glucose 88 Calcium 8.9 Magnesium 2.0 TSH - Procedures none Assessment and Plan - Assessment (1) Acute hyponatremia Code(s): E87.1 - Hypo-osmolality and hyponatremia Status: Acute - Plan 1. Encephalopathy Head CT showed scattered areas of low-attenuation white matter which are nonspecific. No hemorrhage or midline shift. Chest x-ray did not show any acute infiltrates. Likely metabolic encephalopathy secondary to severe hyponatremia and a urinary tract infection. Encephalopathy is resolving with improvement of hyponatremia. 2. Severe hyponatremia. Patient has history of chronic hyponatremia on sodium chloride tablets. Sodium on admission 116. Continue with fluid restriction. Nephrology is following, etiology from decreased oral intake. TSH 10 3. Uncontrolled hypertension. Improved Continue amlodipine 10 minutes p.o. daily. Resume home clonidine, Carvedilol 25 mg po bid. 4. Alcohol abuse. Continue site [facility] protocol. There is no evidence of alcohol withdrawal. 5. Severe hypokalemia - Replaced. Likely due to poor oral intake. 6. Hypophosphatemia - K phos repleted. 8. Leukocytosis - WBC trending up. UA + with culture negatives. WBC trending down dc IV Rocephin and Flagyl 9. Hypothyroidism. Patient on Levothyroxine at home. Continue home dose of Levothyroxine. Rpt TSH 4 wks 10 Depression Per medication history. Resume buspirone, continue to hold Nortriptyline. 11. Diarrhea. Patient describes dark loose stools and also complains of weakness and dizziness. Obtain stat CBC, Hemoccult and stool studies. IV hydration if persistent diarrhea. Because of this new problem will hold discharge today. Discontinue bowel regimen 12. DVT prophylaxis with SCD and early ambulation Discharge Planning: Will be discharged today because of weakness and dizziness with ongoing diarrhea
[2017-11-30 12:22] LABS: Baso % (Auto) 0.5 % (0.0-2.0); Eos # (Auto) 0.1 th/mm3 (0.0-0.4); Eos % (Auto) 1.6 % (0.0-4.0); Hematocrit 35.9 % (35.0-46.0); Hemoglobin 12.1 gm/dL (11.6-15.3); Lymph # (Auto) 1.4 th/mm3 (1.0-4.8); Mean Corpuscular HGB Conc 33.8 % (32.0-36.0); Mean Corpuscular Hemoglobin 35.1 pg (27.0-34.0); Mean Corpuscular Volume 103.7 fL (80.0-100.0); Mean Platelet Volume 7.3 fL (7.0-11.0); Mono # (Auto) 0.6 th/mm3 (0.0-0.9); Mono % (Auto) 6.6 % (0.0-8.0); Neut # (Auto) 6.9 th/mm3 (1.8-7.7); Neut % (Auto) 76.3 % (16.0-70.0); Platelet Count 309 th/mm3 (150-450); Red Blood Count 3.46 mil/mm3 (4.00-5.30); Red Cell Distribution Width 13.1 % (11.6-17.2); White Blood Count 9.1 th/mm3 (4.0-11.0)
[2017-11-30] MEDS: Potassium Chloride Inj 10 MEQ in Sod Chloride 0.9% Inj 1,000 ML IV.CONT PRN (13:07)
--- NOTE | 2017-11-30 14:55 | P.PNNP ---
Subjective Interval history: ongoing diarrhea Physical Exam Vital signs: Vital Signs 11/29/17 15:58 11/29/17 20:00 11/29/17 20:05 Temperature 97.4 F L 97.2 F L Pulse Rate 80 77 85 Respiratory Rate 22 Blood Pressure 126/83 112/67 Pulse Oximetry 100 99 11/30/17 00:00 11/30/17 04:00 11/30/17 08:00 Temperature 97.7 F 97.4 F L 97.8 F Pulse Rate 72 71 80 Respiratory Rate 22 20 18 Blood Pressure 129/79 130/79 122/67 Pulse Oximetry 99 98 100 Intake & Output 11/29/17 11/30/17 11/30/17 18:59 06:59 18:59 Intake Total 820 / 820 360 / 360 Balance 820 / 820 360 / 360 Intake: IV 100 / 100 Flagyl 500 MG Inj 100 ML @ 100 100 / 100 mls/hr IV.SIG Q8H ALEX Rx#: [id number] Oral 720 / 720 360 / 360 Other: # Voids 5 3 # Bowel Movements 5 - Constitutional no acute distress - Routine HEENT Exam Head: Present: normocephalic Eye: Present: EOMI - Routine Neck Exam Present: supple - Routine Respiratory Exam Present: diminished air movement - Routine Cardiovascular Exam Present: RRR - Routine Abdominal Exam Present: soft - Routine Skin Exam Present: intact - Routine Neurological Exam Present: alert, oriented X3 Assessment and Plan - Assessment (1) Acute hyponatremia Code(s): E87.1 - Hypo-osmolality and hyponatremia Status: Acute (2) Acute alteration in mental status Code(s): R41.82 - Altered mental status, unspecified Status: Acute (3) Acute UTI Code(s): N39.0 - Urinary tract infection, site not specified Status: Acute - Plan Most likely her hyponatremia is due to decreased oral intake and hypokalemia is also contributed by that. Patient is euvolemic Electrolytes improved today Na 139 K 4 Now with some ongoing diarrhea. Continue sodium chloride tab replacement Monitor sodium levels Encourage oral intake Will order labs for tomorrow
[2017-11-30] MEDS: Mupirocin 2% Nasal Oint Topical Syringe EACH NARE SCH (20:25)
[2017-12-01] MEDS: Levothyroxine 75 MCG Tablet PO SCH (05:44)
[2017-12-01] MEDS: Potassium Chloride Inj 10 MEQ in Sod Chloride 0.9% Inj 1,000 ML IV.CONT PRN ×2 (05:45→22:35)
[2017-12-01 07:23] LABS: Baso # (Auto) 0.1 th/mm3 (0.0-0.2); Baso % (Auto) 0.8 % (0.0-2.0); Eos # (Auto) 0.3 th/mm3 (0.0-0.4); Eos % (Auto) 2.5 % (0.0-4.0); Hematocrit 37.3 % (35.0-46.0); Hemoglobin 12.5 gm/dL (11.6-15.3); Lymph # (Auto) 1.8 th/mm3 (1.0-4.8); Lymph % (Auto) 15.9 % (9.0-44.0); Mean Corpuscular HGB Conc 33.6 % (32.0-36.0); Mean Corpuscular Volume 104.2 fL (80.0-100.0); Mean Platelet Volume 7.2 fL (7.0-11.0); Mono # (Auto) 0.6 th/mm3 (0.0-0.9); Mono % (Auto) 4.9 % (0.0-8.0); Neut # (Auto) 8.4 th/mm3 (1.8-7.7); Neut % (Auto) 75.9 % (16.0-70.0); Platelet Count 308 th/mm3 (150-450); Red Blood Count 3.58 mil/mm3 (4.00-5.30); Red Cell Distribution Width 13.5 % (11.6-17.2); White Blood Count 11.1 th/mm3 (4.0-11.0)
[2017-12-01 07:40] LABS: Calcium 8.5 mg/dL (8.5-10.1); Carbon Dioxide 16.2 meq/L (21.0-32.0); Magnesium 1.9 mg/dL (1.5-2.5)
[2017-12-01] MEDS: Nystatin/Diphenhydramine/Lidocaine Mouthwash (Adult) 120 ML Botttle SWISH-SWAL SCH ×4 (08:21→21:44)
[2017-12-01] MEDS: amLODIPine 10 MG Tablet PO SCH (08:21)
[2017-12-01] MEDS: Mupirocin 2% Nasal Oint Topical Syringe EACH NARE SCH ×2 (08:21→21:43)
[2017-12-01] MEDS: Sodium Chloride 1 GM Tablet PO SCH ×2 (08:21→21:42)
[2017-12-01] MEDS: Topiramate 200 MG Tablet PO SCH ×2 (08:21→21:42)
[2017-12-01] MEDS: Carvedilol 12.5 MG Tablet PO SCH ×2 (08:21→21:43)
[2017-12-01] MEDS: Lisinopril 5 MG Tablet PO SCH ×2 (08:22→21:41)
[2017-12-01] MEDS: Liothyronine 5 MCG Tablet PO SCH (08:22)
[2017-12-01] MEDS: Naproxen 375 MG Tablet PO PRN ×2 (08:22→17:35)
[2017-12-01 08:34] LABS: Potassium 3.5 meq/L (3.5-5.1)
--- NOTE | 2017-12-01 10:18 | P.PNNP ---
Subjective Interval history: Requesting to be discharged. Sodium level is now normal at 137. On sodium chloride replacement. <Tawana Benitez - Last Filed: 12/01/17 14:01> Physical Exam Vital signs: Vital Signs 11/30/17 16:00 11/30/17 20:00 12/01/17 00:00 Temperature 98.2 F 97.4 F L 99 F Pulse Rate 84 80 64 Respiratory Rate 17 20 20 Blood Pressure 126/69 158/80 H 131/62 Pulse Oximetry 100 100 99 12/01/17 04:00 12/01/17 08:00 Temperature 97.3 F L 97.5 F L Pulse Rate 73 83 Respiratory Rate 18 20 Blood Pressure 144/81 H 152/92 H Pulse Oximetry 99 98 Intake & Output 11/30/17 12/01/17 12/01/17 18:59 06:59 18:59 Intake Total 500 / 500 1485 / 1485 Balance 500 / 500 1485 / 1485 Weight 56.7 kg Intake: IV 1005 / 1005 KCl Inj 10 MEQ In NS Inj 1,000 1005 / 1005 ML @ 60 mls/hr IV.CONT .[id number] PRN Rx#:[id number] Oral 500 / 500 480 / 480 Other: # Voids 3 3 Date of Last Bowel Movement 11/30/17 # Bowel Movements 1 1 - Constitutional no acute distress - Routine HEENT Exam Head: Present: normocephalic - Routine Neck Exam Present: supple. Absent: JVD - Routine Respiratory Exam Present: CTA bilaterally. Absent: rales, rhonchi - Routine Cardiovascular Exam Present: RRR - Routine Abdominal Exam Present: soft, normoactive bowel sounds - Routine Extremities Exam Absent: edema, Marti's sign - Routine Skin Exam Present: intact, warm - Routine Neurological Exam Present: alert, oriented X3 <Tawana Benitez - Last Filed: 12/01/17 14:01> Vital signs: Vital Signs 12/01/17 00:00 12/01/17 04:00 12/01/17 08:00 Temperature 99 F 97.3 F L 97.5 F L Pulse Rate 64 73 83 Respiratory Rate 20 18 20 Blood Pressure 131/62 144/81 H 152/92 H Pulse Oximetry 99 99 98 12/01/17 12:00 12/01/17 16:00 Temperature 97.7 F 97.6 F Pulse Rate 72 81 Respiratory Rate 19 19 Blood Pressure 125/75 127/71 Pulse Oximetry 98 100 Intake & Output 12/01/17 12/01/17 12/02/17 06:59 18:59 06:59 Intake Total 1485 / 1485 1260 / 1260 Balance 1485 / 1485 1260 / 1260 Weight 56.7 kg Intake: IV 1005 / 1005 KCl Inj 10 MEQ In NS Inj 1,000 1005 / 1005 ML @ 60 mls/hr IV.CONT .[id number] PRN Rx#:[id number] Oral 480 / 480 1260 / 1260 Other: # Voids 3 6 # Bowel Movements 1 <Rebecca Alicea - Last Filed: 12/01/17 21:44> Assessment and Plan - Assessment (1) Acute hyponatremia Code(s): E87.1 - Hypo-osmolality and hyponatremia Status: Acute (2) Acute alteration in mental status Code(s): R41.82 - Altered mental status, unspecified Status: Acute (3) Acute UTI Code(s): N39.0 - Urinary tract infection, site not specified Status: Acute - Plan Hyponatremia Most likely her hyponatremia is due to decreased oral intake and hypokalemia is also contributed by that. Patient is euvolemic Na 137 K 3.5 Has some ongoing diarrhea, Continue sodium chloride tab replacement Monitor sodium levels periodically Encourage oral intake Hyponatremia is resolved nephrology will see PRN only <Tawana Benitez - Last Filed: 12/01/17 14:01> - Assessment (1) Acute hyponatremia Code(s): E87.1 - Hypo-osmolality and hyponatremia Status: Acute (2) Acute alteration in mental status Code(s): R41.82 - Altered mental status, unspecified Status: Acute (3) Acute UTI Code(s): N39.0 - Urinary tract infection, site not specified Status: Acute - Attending Attestation Patient seen and examined, agree with above. Electrolytes better. Need to avoid Alcoholism and eat better. I will sign off from Nephrology, call again if needed. <Rebecca Alicea - Last Filed: 12/01/17 21:44>
--- NOTE | 2017-12-01 12:30 | P.PN ---
Subjective Interval history: Follow-up diarrhea. Continues to have loose stools already had 2 episodes today. Denies weakness, dizziness and abdominal pain. She is guaiac negative. Physical Exam Vital signs: Vital Signs 11/30/17 16:00 11/30/17 20:00 12/01/17 00:00 Temperature 98.2 F 97.4 F L 99 F Pulse Rate 84 80 64 Respiratory Rate 17 20 20 Blood Pressure 126/69 158/80 H 131/62 Pulse Oximetry 100 100 99 12/01/17 04:00 12/01/17 08:00 Temperature 97.3 F L 97.5 F L Pulse Rate 73 83 Respiratory Rate 18 20 Blood Pressure 144/81 H 152/92 H Pulse Oximetry 99 98 Intake & Output 11/30/17 12/01/17 12/01/17 18:59 06:59 18:59 Intake Total 500 / 500 1485 / 1485 Balance 500 / 500 1485 / 1485 Weight 56.7 kg Intake: IV 1005 / 1005 KCl Inj 10 MEQ In NS Inj 1,000 1005 / 1005 ML @ 60 mls/hr IV.CONT .[id number] PRN Rx#:[id number] Oral 500 / 500 480 / 480 Other: # Voids 3 3 Date of Last Bowel Movement 11/30/17 # Bowel Movements 1 1 Narrative: - Constitutional no acute distress - Routine Respiratory Exam Present: CTA bilaterally - Routine Cardiovascular Exam Present: RRR, S1, S2 - Routine Abdominal Exam Present: soft, normoactive bowel sounds - Routine Extremities Exam Present: pulses intact - Routine Neurological Exam AAOx3 Results - Labs CBC & Chem 7: 12/01/17 06:50 12/01/17 06:50 Laboratory Results - last 24 hr 12/01/17 12/01/17 06:50 06:50 WBC 11.1 H RBC 3.58 L Hgb 12.5 Hct 37.3 MCV 104.2 H MCH 35.0 H MCHC 33.6 RDW 13.5 Plt Count 308 MPV 7.2 Neut % (Auto) 75.9 H Lymph % (Auto) 15.9 [place] % (Auto) 4.9 Eos % (Auto) 2.5 Baso % (Auto) 0.8 Neut # (Auto) 8.4 H Lymph # (Auto) 1.8 [place] # (Auto) 0.6 Eos # (Auto) 0.3 Baso # (Auto) 0.1 WBC Differential . Differential Comment Auto diff final Sodium 137 Potassium 3.5 Chloride 105 Carbon Dioxide 16.2 L Anion Gap 16 H BUN 7 Creatinine 0.68 Estimated GFR 89 Random Glucose 89 Calcium 8.5 Magnesium 1.9 Microbiology 11/30/17 19:30 Stool Stool Occult Blood (DIMPLE) - Final Hemoccult negative - Procedures none Assessment and Plan - Assessment (1) Acute hyponatremia Code(s): E87.1 - Hypo-osmolality and hyponatremia Status: Acute - Plan 1. Encephalopathy Head CT showed scattered areas of low-attenuation white matter which are nonspecific. No hemorrhage or midline shift. Chest x-ray did not show any acute infiltrates. Likely metabolic encephalopathy secondary to severe hyponatremia and a urinary tract infection. Encephalopathy is resolving with improvement of hyponatremia. 2. Severe hyponatremia. Patient has history of chronic hyponatremia on sodium chloride tablets. Sodium on admission 116. Continue with fluid restriction. Nephrology is following, etiology from decreased oral intake. TSH 10 3. Uncontrolled hypertension. Improved Continue amlodipine 10 minutes p.o. daily. Resume home clonidine, Carvedilol 25 mg po bid. 4. Alcohol abuse. Continue site [facility] protocol. There is no evidence of alcohol withdrawal. 5. Severe hypokalemia - Replaced. Likely due to poor oral intake. 6. Hypophosphatemia - K phos repleted. 8. Leukocytosis - WBC trending up. UA + with culture negatives. WBC trending down dc IV Rocephin and Flagyl 9. Hypothyroidism. Patient on Levothyroxine at home. Continue home dose of Levothyroxine. Rpt TSH 4 wks 10 Depression Per medication history. Resume buspirone, continue to hold Nortriptyline. 11. Diarrhea with acidosis. Guaiac negative. Ongoing diarrhea Lactinex and obtain stool culture and C. difficile. Continue IV hydration. Because of dehydration, will hold discharge today. Discontinue bowel regimen 12. DVT prophylaxis with SCD and early ambulation Discharge Planning: Will hold discharge today because of dehydration and acidosis with ongoing diarrhea
[2017-12-01] MEDS: Lactobacillus Acidophilus/L. Spores Tablet PO SCH ×2 (15:14→17:35)
[2017-12-01] MEDS: Temazepam 15 MG Capsule PO PRN (21:50)
[2017-12-02] MEDS: Levothyroxine 75 MCG Tablet PO SCH (06:33)
[2017-12-02] MEDS: Nystatin/Diphenhydramine/Lidocaine Mouthwash (Adult) 120 ML Botttle SWISH-SWAL SCH ×2 (09:50→12:38)
[2017-12-02] MEDS: Carvedilol 12.5 MG Tablet PO SCH (09:51)
[2017-12-02] MEDS: Lactobacillus Acidophilus/L. Spores Tablet PO SCH ×2 (09:52→12:38)
[2017-12-02] MEDS: Lisinopril 5 MG Tablet PO SCH (09:52)
[2017-12-02] MEDS: Sodium Chloride 1 GM Tablet PO SCH (09:52)
[2017-12-02] MEDS: Liothyronine 5 MCG Tablet PO SCH (09:53)
[2017-12-02] MEDS: Topiramate 200 MG Tablet PO SCH (09:53)
[2017-12-02] MEDS: amLODIPine 10 MG Tablet PO SCH (09:53)
[2017-12-02 11:24] LABS: Baso # (Auto) 0.1 th/mm3 (0.0-0.2); Baso % (Auto) 1.2 % (0.0-2.0); Eos # (Auto) 0.3 th/mm3 (0.0-0.4); Eos % (Auto) 2.8 % (0.0-4.0); Hematocrit 40.1 % (35.0-46.0); Hemoglobin 13.5 gm/dL (11.6-15.3); Lymph % (Auto) 20.9 % (9.0-44.0); Mean Corpuscular HGB Conc 33.6 % (32.0-36.0); Mean Corpuscular Hemoglobin 35.5 pg (27.0-34.0); Mean Corpuscular Volume 105.6 fL (80.0-100.0); Mean Platelet Volume 7.5 fL (7.0-11.0); Mono # (Auto) 0.5 th/mm3 (0.0-0.9); Mono % (Auto) 4.9 % (0.0-8.0); Neut # (Auto) 6.7 th/mm3 (1.8-7.7); Neut % (Auto) 70.2 % (16.0-70.0); Platelet Count 343 th/mm3 (150-450); Red Cell Distribution Width 13.3 % (11.6-17.2); White Blood Count 9.5 th/mm3 (4.0-11.0)
[2017-12-02 11:48] LABS: Anion Gap 10 meq/L (5-15); Calcium 8.4 mg/dL (8.5-10.1); Carbon Dioxide 18.7 meq/L (21.0-32.0); Chloride 109 meq/L (98-107); Glomerular Filtration Rate Greater Than 89 mL/min (>89); Glucose,Random 72 mg/dL (74-106); Potassium 3.5 meq/L (3.5-5.1); Sodium 138 meq/L (136-145)
[2017-12-02 11:49] LABS: Blood Urea Nitrogen 9 mg/dL (7-18)
[2017-12-02] MEDS: Naproxen 375 MG Tablet PO PRN (12:37)
--- NOTE | 2017-12-02 13:33 | P.DS ---
Date of admission: 11/25/17 16:31 Primary care physician: No Primary Care Physician Brief History from admission: Patient is a 57-year-old female with past medical history of hyponatremia on sodium tablets presented to the emergency room with encephalopathy. She is a poor historian she thinks it is 1985, she knows who the president is but she thinks she is in [place]. She admits to nausea and vomiting for the past 2 days. She denies any diarrhea. She denies eating anything new at home. She denies any sick contacts. She denies any burning in urination or increased urinary frequency. She states that her called EMS for her. She admits to fevers and chills however she never took an official temperature at home. Per nurse, patient is here on a road trip. To me patient denied any diarrhea. Initially she said yes when asked if she had any chest pain or shortness of breath but then she says no when I asked her again. She seemed annoyed with my question. She denied again any chest pain shortness of breath however after I asked her a third time. Per EMR documentation: "Pt reported that she had been vomiting and having diarrhea to triage but denied this to ED physician. She was very confused and per staff she said her was with her and pointed out a trash can. She cannot tell ED physician how many times she vomited and does not think that she ever did. She denied complaints but every time ED physician asked her a question she just stared at her and did not respond." DS: Diagnosis - Discharge Diagnosis (1) Acute hyponatremia Status: Acute DS: Summary Hospital Course: 1. Encephalopathy Head CT showed scattered areas of low-attenuation white matter which are nonspecific. No hemorrhage or midline shift. Chest x-ray did not show any acute infiltrates. Likely metabolic encephalopathy secondary to severe hyponatremia and a urinary tract infection. Encephalopathy is resolving with improvement of hyponatremia. 2. Severe hyponatremia. Patient has history of chronic hyponatremia on sodium chloride tablets. Sodium on admission 116. Continue with fluid restriction. Nephrology is following, etiology from decreased oral intake. TSH 10 3. Uncontrolled hypertension. Improved Continue amlodipine 10 minutes p.o. daily. Resume home clonidine, Carvedilol 25 mg po bid. 4. Alcohol abuse. Continue site [facility] protocol. There is no evidence of alcohol withdrawal. 5. Severe hypokalemia - Replaced. Likely due to poor oral intake. 6. Hypophosphatemia - K phos repleted. 8. Leukocytosis - WBC trending up. UA + with culture negatives. WBC trending down dc IV Rocephin and Flagyl 9. Hypothyroidism. Patient on Levothyroxine at home. Continue home dose of Levothyroxine. Rpt TSH 4 wks 10 Depression Per medication history. Resume buspirone, continue to hold Nortriptyline. 11. Diarrhea with acidosis. Guaiac negative. Resolved s/p IV hydration. Discontinue bowel regimen 12. DVT prophylaxis with SCD and early ambulation - Time Spent with Patient Total time spent providing and/or coordinating discharge services: - Quality: VTE Deep Vein Thrombosis/Pulmonary Embolism Present on Admission: No Exam Vital signs: Vital Signs 12/01/17 16:00 12/01/17 20:00 12/02/17 00:00 Temperature 97.6 F 97.3 F L 97.1 F L Pulse Rate 81 77 68 Respiratory Rate 19 18 18 Blood Pressure 127/71 145/92 H 121/66 Pulse Oximetry 100 98 98 12/02/17 04:00 12/02/17 08:00 Temperature 97.6 F 97.2 F L Pulse Rate 70 75 Respiratory Rate 18 20 Blood Pressure 139/82 155/87 H Pulse Oximetry 98 99 Intake & Output 12/01/17 12/02/17 12/02/17 18:59 06:59 18:59 Intake Total 1260 / 1260 1005 / 1005 Balance 1260 / 1260 1005 / 1005 Intake: IV 1005 / 1005 KCl Inj 10 MEQ In NS Inj 1,000 1005 / 1005 ML @ 60 mls/hr IV.CONT .[id number] PRN Rx#:[id number] Oral 1260 / 1260 Other: # Voids 6 1 Date of Last Bowel Movement 12/01/17 Narrative: - Constitutional no acute distress - Routine Respiratory Exam Present: CTA bilaterally - Routine Cardiovascular Exam Present: RRR, S1, S2 - Routine Abdominal Exam Present: soft, normoactive bowel sounds - Routine Extremities Exam Present: pulses intact - Routine Neurological Exam AAOx3 Results Procedures completed during hospitalization: none Labs on day of discharge: Labs from last 24 hours 12/02/17 12/02/17 09:14 09:14 WBC 9.5 RBC 3.80 L Hgb 13.5 Hct 40.1 MCV 105.6 H MCH 35.5 H MCHC 33.6 RDW 13.3 Plt Count 343 MPV 7.5 Neut % (Auto) 70.2 H Lymph % (Auto) 20.9 Hunt % (Auto) 4.9 Eos % (Auto) 2.8 Baso % (Auto) 1.2 Neut # (Auto) 6.7 Lymph # (Auto) 2.0 Hunt # (Auto) 0.5 Eos # (Auto) 0.3 Baso # (Auto) 0.1 WBC Differential . Differential Comment Auto diff final Sodium 138 Potassium 3.5 Chloride 109 H Carbon Dioxide 18.7 L Anion Gap 10 BUN 9 Creatinine 0.62 Estimated GFR Greater than 89 Random Glucose 72 L Calcium 8.4 L Magnesium 2.0 - Impressions ITS Impressions Chest X-Ray 11/25/17 13:46 CONCLUSION: No acute cardiopulmonary disease. Head CT 11/25/17 13:46 CONCLUSION: 1. Scattered areas of low-attenuation white matter could be nonspecific white matter changes. 2. No hemorrhage or midline shift. Discharge Plan - Discharge Disposition Patient Disposition: Discharge Home - Discharge Condition Condition: Stable - Discharge Order Discharge Orders: Discharge Order (Routine); Ordered 12/02/17 Ordered By: Erik Landaverde - Physicians Team Primary Care Provider: Primary Care Eliza William Attending Provider: Erik Landaverde Other Providers: Rebecca Alicea MD
== END 2017-12-02 16:53 | disposition home or self-care (01) ==
LOC: NEPE 12:17 → NEDA 16:31 → HIMC 17:21 → N07 11-28 20:35
PROVIDERS: ADMIT Internal Medicine; ATTEND Internal Medicine